=== PATIENT | female | born 1940 | race Caucasian/White ===

== ENCOUNTER 2018-01-31 09:54 | Emergency (ER) | payer OTHER ==
[2018-01-31 10:17] VITALS: BP 155/78
[2018-01-31] MEDS ORDERED: Ondansetron ODT TAB* 4 MG SL ONE (10:20)
[2018-01-31] MEDS ORDERED: Ibuprofen TAB* 600 MG PO ONE (10:21)
--- NOTE | 2018-01-31 10:48 | RAD ---
Indication: Right wrist injury 3 views of the wrist demonstrates fracture of the distal radius with overriding of the fracture fragments and distal displacement.. Degenerative changes of the intercarpal joints is noted. IMPRESSION: Fracture of the distal radius with overriding of the fracture fragments and dorsal displacement.
--- NOTE | 2018-01-31 12:04 | UC ---
Upper Extremity HPI - HPI Summary HPI Summary: Patient is a 77-year-old female presenting to the ED with a chief complaint of a right wrist pain and deformity after falling prior to arrival. Endorses pain to the dorsum of the wrist. There is a small amount of bleeding to the volar wrist. There is a small 0.2 cm puncture wound to the right volar wrist which is actively bleeding. She has never injured the right wrist before. Pain is 7 out of 10, constant and throbbing. Denies any numbness or tingling. Ice is applied on arrival. Denies any color temperature changes to the wrist. Pulses +2 intact bilaterally. - History of Current Complaint Chief Complaint: UCUpperExtremity Stated Complaint: WRIST INJURY Time Seen by Provider: 01/31/18 10:10 Hx Obtained From: Patient ?: No Onset/Duration: Sudden Onset Severity Initially: Moderate Severity Currently: Moderate Pain Intensity: 4 Pain Scale Used: 0-10 Numeric Location Of Pain: Is Discrete @ - dorsal wrist Aggravating Factor(s): Lifting, Flexion, Extension Alleviating Factor(s): Compression, Ice Associated Signs And Symptoms: Positive: Swelling, Other - Risk Factors Non-Orthopedic Risk Factor: Negative DVT Risk Factors: Negative Septic Arthritis Risk Factor: Negative Compartment Syndrome Risk Factors: Pain - Allergies/Home Medications Allergies/Adverse Reactions: Allergies Allergy/AdvReac Type Severity Reaction Status Date / Time acetaminophen Allergy Vomiting Verified 01/31/18 10:42 [From Darvocet-N] budesonide [From Symbicort] Allergy Unknown Verified 01/31/18 10:40 Reaction Details celecoxib [From Celebrex] Allergy Rash Verified 01/31/18 10:38 ciprofloxacin [From Cipro] Allergy See Comment Verified 01/31/18 10:38 codeine Allergy Vomiting Verified 01/31/18 10:39 formoterol [From Symbicort] Allergy Unknown Verified 01/31/18 10:40 Reaction Details latex Allergy Rash Verified 01/31/18 10:39 naproxen Allergy Rash Verified 01/31/18 10:39 nitrofurantoin Allergy Nausea And Verified 01/31/18 10:38 [From Macrodantin] Vomiting prochlorperazine Allergy See Comment Verified 01/31/18 10:43 propoxyphene Allergy Vomiting Verified 01/31/18 10:42 [From Darvocet-N] Sulfa (Sulfonamide Allergy Vomiting Verified 01/31/18 10:42 Antibiotics) tramadol Allergy Hallucinati Verified 01/31/18 10:40 ons bactrim Allergy Shortness Uncoded 10/30/16 09:47 of Breath ENVIRONMENTAL Allergy EYE Uncoded 10/30/16 09:47 IRRITATION, CONSTANT NASAL DRIP Home Medications: Home Medications Aspirin 81 mg PO DAILY 01/31/18 [History Confirmed 01/31/18] Aspirin 325 mg PO BID 01/31/18 [History Confirmed 01/31/18] Calcium Carbonate/Vitamin D3 [Calcium 600+D High Potenc] 1 tab PO DAILY [History Confirmed 01/31/18] Cholecalciferol (Vitamin D3) [Vitamin D3] 1,000 unit PO DAILY 01/31/18 [History Confirmed 01/31/18] Cinnamon Bark [Cinnamon] 500 mg PO DAILY 01/31/18 [History Confirmed 01/31/18] Cranberry Fruit Extract [Cranberry] 1 cap PO DAILY 01/31/18 [History Confirmed 01/31/18] Cyanocobalamin TAB* [Vitamin B12 TAB*] 1,000 mcg PO DAILY 01/31/18 [History Confirmed 01/31/18] Glucosamine HCl [Glucosamine] 1,500 mg PO DAILY 01/31/18 [History Confirmed ] L.acidoph,Paracasei, B.lactis [Probiotic] 1 each PO DAILY 01/31/18 [History Confirmed 01/31/18] Magnesium Oxide [Magnesium] 500 mg PO DAILY 01/31/18 [History Confirmed 01/31/18 ] Multivitamin [Multivitamins] 1 cap PO DAILY 01/31/18 [History Confirmed 01/31/18 ] [place]-3 Fatty Acids/Fish Oil [Fish Oil 1200 mg] 1 cap PO DAILY 01/31/18 [ History Confirmed 01/31/18] PMH/Surg Hx/FS Hx/Imm Hx Previously Healthy: Yes - Surgical History Surgical History: Yes Surgery Procedure, Year, and Place: gallbladder removed 1973 - Family History Known Family History: Positive: Cardiac Disease - Social History Occupation: Unemployed Lives: Alone Alcohol Use: Rare Substance Use Type: None Smoking Status (MU): Never Smoked Tobacco - Immunization History Most Recent Influenza Vaccination: 2016 Most Recent Tetanus Shot: unknown Review of Systems Constitutional: Negative Skin: Negative Respiratory: Negative Motor: Decreased ROM, Weakness Neurovascular: Decreased Sensation Musculoskeletal: Arthralgia Neurological: Negative Psychological: Negative Is Patient Immunocompromised?: No All Other Systems Reviewed And Are Negative: Yes Physical Exam Triage Information Reviewed: Yes Appearance: Well-Appearing, Well-Nourished Vital Signs: Initial Vital Signs Temp 97.9 F 01/31/18 10:07 Pulse 62 01/31/18 10:07 Resp 16 01/31/18 10:07 BP 155/78 01/31/18 10:07 Pulse Ox 97 01/31/18 10:07 Vital Signs Reviewed: Yes Eye Exam: Normal Eyes: Positive: Conjunctiva Clear Neck exam: Normal Neck: Positive: Supple, No Lymphadenopathy Respiratory Exam: Normal Respiratory: Positive: Chest non-tender, Lungs clear Cardiovascular Exam: Normal Cardiovascular: Positive: RRR Musculoskeletal: Positive: ROM Limited @ - dorsum of the R wrist Neurological Exam: Normal Neurological: Positive: Alert Psychological: Positive: Normal Response To Family, Age Appropriate Behavior Skin Exam: Normal Upper Extremity Course/Dx - Course Course Of Treatment: During the course of treatment, the patient's evaluated for right dorsal wrist pain. Deformity noted. X-ray obtained which shows fracture of the distal radius with overriding fragments and dorsal displacement. Discussed with patient hematoma block and reduction of the wrist prior to splint. She states she would rather see an orthopedist and would not like the attempt at reduction. I have called the on-call orthopedist who is currently in the OR. I have called the office and Dr. Logan agrees to see patient in her office at this time. This fracture is an open fracture as there is active bleeding. Bleeding is controlled during the course of treatment and occlusive form is applied with Kerlix gauze wrapped. Volar wrist splint applied. Patient tolerated well. Sling given. She is to follow-up with or so at 1 PM this afternoon for evaluation. She is given Keflex 4 days for open fracture. The bone fragments however are not near the scan and likely this is not bone fragments which caused the injury. She continues to have radial pulses , but fingertips with some numbness and tingling at thist violetta (prior to splint application.) She has, however, been applying ice since arrival. Denies pain in the elbow of fingertips. Unable to tell the severity of any veins or arteries underlying, but no ecchymosis or hematoma is seen. - Differential Dx/Diagnosis Differential Diagnosis/HQI/PQRI: Fracture (Open), Fracture (Closed) Provider Diagnoses: Right distal radius fracture Discharge - Discharge Plan Condition: Stable Disposition: HOME Prescriptions: Cephalexin CAP* [Keflex CAP*] 500 mg PO QID #16 cap MDD 4 Patient Education Materials: Wrist Fracture in Adults (ED) Referrals: Mirta Frausto MD [Primary Care Provider] - Elizabeth Logan MD [Medical Doctor] - Additional Instructions: Please follow up with Dr. Logan today at 1pm. Make sure you make them aware this is an "open fracture" since there is a small cut to the wrist.
== END 2018-01-31 11:40 | disposition home or self-care (01) ==
LOC: UCEAST 09:54
DX: S52.501B Unspecified fracture of the lower end of right radius, initial encounter for open fracture type I or II (principal); W19.XXXA Unspecified fall, initial encounter; Y92.9 Unspecified place or not applicable; Z88.6 Allergy status to analgesic agent; Z88.8 Allergy status to other drugs, medicaments and biological substances; Z88.2 Allergy status to sulfonamides; Z88.3 Allergy status to other anti-infective agents
CPT/HCPCS: 99213; A9270-GY; G0463

== ENCOUNTER 2018-02-01 09:19 | Day surgery (SDC) | payer OTHER ==
[~2018-02-01 09:19] MED LIST: Buffered Lidocaine 0.9% SYRIN* 5 ML/SYR SYRINGE INTRADERM ONE; Dexamethasone IV* 4 MG/ML 1 ML (4 MG) IV SLOW PU ONE; Famotidine IV* 10 MG/ML 2 ML (20 mg) IV ONE
--- NOTE | 2018-02-01 09:35 | HP ---
PREOPERATIVE HISTORY AND PHYSICAL: DATE OF ADMISSION/SURGERY: 02/01/18 ATTENDING SURGEON: Dr. Elizabeth Logan* (dictated by MENDEL Blank). PROCEDURE: Open reduction and internal fixation, right distal radius fracture. CHIEF COMPLAINT: Right wrist pain. HISTORY OF PRESENT ILLNESS: Shaista is a 77-year-old female, who has a 1-day history of right wrist pain which started when she was walking into work. She slipped on ice and fell landing on to an outstretched hand. She was seen at [facility] where x-rays were obtained, which did reveal fracture. She was splinted and sent right away for orthopedic evaluation. The patient was seen by Dr. Logan in the office, a closed reduction was attempted, but there was still a quite a bit of displacement. The patient has elected to proceed with surgery for open reduction internal fixation of right distal radius fracture. She denies any numbness or tingling. PAST MEDICAL HISTORY: 1. Aortic valve disorder. 2. Diabetes mellitus. 3. Hyperlipidemia. 4. Benign essential hypertension. PAST SURGICAL HISTORY: 1. Cholecystectomy in 1973. 2. Tonsillectomy in 1945. CURRENT MEDICATIONS: 1. Atorvastatin. 2. Metoprolol succinate. 3. Aspirin 325 mg. 4. Calcium. 5. Multivitamin. 6. Fish oil. 7. Glucosamine. 8. Potassium gluconate 595 mg. 9. Magnesium 500 mg. 10. Vitamin B12 1000 mcg. 11. Cranberry 250 mg. 12. Aspirin 81 mg. 13. Cinnamon 500 mg. 14. Probiotics. 15. Advil 200 mg. 16. PreserVision AREDS 2. ALLERGIES: To BACTRIM, COMPAZINE, DARVOCET, ULTRACET, CIPRO, CELEBREX, ALEVE, MACRODANTIN, CODEINE, SYMBICORT, and LATEX SENSITIVITY. FAMILY HISTORY: Heart disease, cancer. SOCIAL HISTORY: She is , she lives alone. She works as library administrative assistant coordinator. She denies tobacco use, rarely consumes alcohol, and denies recreational drug use. REVIEW OF SYSTEMS: General: Negative for fevers, chills, night sweats. No known anesthesia problems. HEENT: Negative for headaches, lightheadedness, or syncopal episodes. Integumentary: Negative for abrasions, lesions, or open wounds. Cardiothoracic: Positive for history of aortic stenosis, hypertension. Negative for chest pain, palpitations, or edema. Pulmonary: Negative for shortness of breath with exertion, chronic cough, COPD. GI: Negative or nausea , vomiting, diarrhea, constipation, or GERD. : Negative for nocturia, urinary frequency, urgency, history of UTI, or kidney problems. Musculoskeletal : Positive for current complaint. Negative for chronic or intermittent back pain. Neurological: Negative for history of seizures, stroke, or epilepsy. Negative for anxiety or depression. Endocrine: Positive for diabetes. Negative for thyroid issues. Hematological: Negative for easy bruising or bleeding. Negative for history of DVT. Infectious Disease: Negative for history of MRSA, hepatitic C, or HIV. PHYSICAL EXAMINATION GENERAL: Well-developed, well nourished, 77-year-old female, in mild distress at rest. She is awake, alert, and oriented x3. Appropriate mood and affect. VITAL SIGNS: Pulse is 57, blood pressure is 138/88, respirations 16, temperature 99.0. HEENT: Head is normocephalic, atraumatic. Pupils are equal, round, and reactive to light and accommodation. Throat is clear. NECK: Supple with no palpable lymph nodes. PULMONARY: Lungs clear to auscultation bilaterally. No wheezes, rales, or rhonchi. CARDIOVASCULAR: Regular rate and rhythm. S1, S2. No murmurs, rubs, or gallops. No edema. ABDOMEN: Positive bowel sounds throughout. Soft, nontender. NEUROLOGIC: Alert and oriented x3. Cranial nerves II through XII are grossly intact. Sensation is intact to light touch distally. MUSCULOSKELETAL: Exam of the right upper extremity, she does have a quite a bit of swelling and bruising down to the fingers and wrist. There is mild deformity of the wrist. She is tender at the distal radius. Sensation is intact to light touch distally, 2+ radial pulse. DIAGNOSTIC STUDIES: X-rays taken today showed a displaced intraarticular fracture of the right distal radius. IMPRESSION: Right distal radius fracture. PLAN: The patient is scheduled to undergo an open reduction internal fixation right distal radius fracture with Dr. Logan on 02/01/18. She will return to the office in 14 days postoperatively for followup and suture removal. A prescription for [place] was e-prescribed to the patient's pharmacy for postoperative pain management. MENDEL BLANK [id number]/[facility] #: [id number] [facility]
[2018-02-01] MEDS ORDERED: Famotidine IV* 10 MG/ML 2 ML (20 mg) ONE (09:46)
[2018-02-01] MEDS ORDERED: ceFAZolin 2 GM (*##) 2 GM/100 ML BAG USE CEFA2SOL IVPB ONE (09:46)
[2018-02-01] MEDS ORDERED: Dexamethasone IV* 4 MG/ML 1 ML (4 MG) ONE (09:46)
[2018-02-01] MEDS ORDERED: Buffered Lidocaine 0.9% SYRIN* 5 ML/SYR SYRINGE ONE (10:28)
[2018-02-01] MEDS ORDERED: ROPIVACAINE 5 MG/ML 30 ML BTL (0.5%) ONE (11:02)
[2018-02-01] MEDS ORDERED: Ondansetron INJ* 2 MG/ML VIAL ONE (11:04)
[2018-02-01] MEDS ORDERED: Bupivacaine 0.25% SDV* 30 ML ONE (11:04)
[2018-02-01] MEDS ORDERED: Propofol* 10 MG/ML 20 ML BTL IV PUSH ONE (11:04)
[2018-02-01] MEDS ORDERED: Ketorolac INJ* 30 MG/ML 1 ML VIAL ONE (11:04)
[2018-02-01] MEDS ORDERED: fentaNYL* 50 MCG/ML 2 ML VIAL (100 MCG VIAL) ONE ×2 (11:04→11:42)
[2018-02-01] MEDS ORDERED: Midazolam* 1 MG/ML 5 ML VIAL (5 MG) ONE (11:04)
[2018-02-01] MEDS ORDERED: Lidocaine 1% INJ* 10 MG/ML 30 ML SDV ONE (11:34)
[2018-02-01] MEDS ORDERED: Naloxone* 0.4 MG/ML 1 ML VIAL IV PRN (12:03)
[2018-02-01 13:04] VITALS: BP 125/93
--- NOTE | 2018-02-01 15:23 | RAD ---
INDICATION: Right wrist ORIF COMPARISON: January 31, 2018 FINDINGS: 71 seconds of fluoroscopy were provided for the orthopedics department. Fluoroscopic spot imaging of the right wrist were obtained for operative control and show open reduction and internal fixation of the distal radial fracture. The fracture fragments are in anatomic position . CPT II Codes: 6045F (fluoro time doc)
--- NOTE | 2018-02-02 22:30 | OP ---
DATE OF OPERATION: 02/01/18 - [facility] DATE OF : 40 SURGEON: Elizabeth Logan MD ANESTHESIA: Block. PRE-OP DIAGNOSIS: Right distal radius fracture, intraarticular and displaced. POST-OP DIAGNOSIS: Right distal radius fracture, intraarticular and displaced. OPERATIVE PROCEDURE: Open reduction internal fixation of the right distal radius. ESTIMATED BLOOD LOSS: Zero. TOURNIQUET TIME: About 35 minutes. INDICATION FOR PROCEDURE: Shaista Velez is a 77-year-old women, who slipped and fell on the ice at work yesterday. She suffered a completely displaced fracture of her distal radius, attempted closed reduction was not adequate. She presents for open reduction internal fixation of the distal radius. DESCRIPTION OF PROCEDURE: The patient was brought to the operating room, was given a block anesthetic, and a tourniquet was placed around her right upper arm. Skin of her right upper extremity was prepped and draped in the usual sterile fashion. The upper extremity was exsanguinated and the tourniquet elevated to 250 mmHg. A longitudinal incision was made over the FCR tendon and we dissected sharply through the tendon sheath both superficially and deep. The FPL muscle was then retracted ulnarly and the pronator quadratus was incised and subperiosteally dissected off of the distal radius. The fracture fragments were then reduced and a plate from the 2.4 variable angle Synthes distal radius set was secured with 4 distal and 3 proximal screws. The position of the hardware and fracture fragments were checked on the C-arm in the AP and lateral views and found to be satisfactory. The wound was irrigated. The pronator quadratus was repaired over the plate. The FCR tendon sheath was repaired with 2-0 Vicryl suture and the skin edges were reapproximated with 4-0 nylon suture. The wound was dressed with Xeroform, 4x4 , Webril, and a volar splint. The patient tolerated the procedure well and was brought to the recovery room in good condition. [id number]/[facility] #: [id number] [facility]
== END 2018-02-01 13:04 | disposition home or self-care (01) ==
LOC: OREAST 09:19
PROVIDERS: ATTEND Orthopaedic Surgery
DX: S52.571A Other intraarticular fracture of lower end of right radius, initial encounter for closed fracture (principal); W00.2XXA Other fall from one level to another due to ice and snow, initial encounter; Y93.01 Activity, walking, marching and hiking; Y92.89 Other specified places as the place of occurrence of the external cause; I35.8 Other nonrheumatic aortic valve disorders; E11.9 Type 2 diabetes mellitus without complications; E78.5 Hyperlipidemia, unspecified; I10 Essential (primary) hypertension
CPT/HCPCS: 76001; C1713; C1776; J1100; J1885; J2250; J2405; J2704; J2795; J3010

== ENCOUNTER 2019-03-27 16:30 | Emergency (ER) | payer OTHER ==
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
[2019-03-27] MEDS ORDERED: Tetan/Diph/Pertus SYR(Tdap)* 0.5 ML SYR(BOOSTRIX) use SYR IM ONE (17:07)
--- NOTE | 2019-03-27 17:19 | UC ---
Minor Trauma HPI - HPI Summary HPI Summary: 78 yo female tripped over a students foot and handed face first on a carpeted floor No CHRISTIAN + nasal pain and swelling but no ecchymosis No neck pain no jaw pain + upper lip laceration no loose teeth C/O right hand laceration but denies pain c/o left shoulder pain no CP or SOB - History of Current Complaint Chief Complaint: UCHeadInjury Stated Complaint: facial injury Time Seen by Provider: 03/27/19 16:37 Hx Obtained From: Patient Hx Last Menstrual Period: post Onset/Duration: Sudden Onset Onset Of Pain: Immediate Severity Initially: Moderate Severity Currently: Mild Pain Intensity: 2 Pain Scale Used: 0-10 Numeric Mechanism Of Injury: Fall From A Standing Position Aggravating Factor(s): Nothing Associated Signs And Symptoms: Positive: Ecchymosis, Swelling Body - Head: 1 - diffuse nasal swelling/bilateral periorbital ecchymosis 2 - lac/dorsal hand edema 3 - pain - Allergies/Home Medications Allergies/Adverse Reactions: Allergies Allergy/AdvReac Type Severity Reaction Status Date / Time acetaminophen Allergy Vomiting Verified 03/27/19 16:48 [From Darvocet-N] budesonide [From Symbicort] Allergy Unknown Verified 03/27/19 16:48 Reaction Details celecoxib [From Celebrex] Allergy Rash Verified 03/27/19 16:48 ciprofloxacin [From Cipro] Allergy See Comment Verified 03/27/19 16:48 codeine Allergy Vomiting Verified 03/27/19 16:48 formoterol [From Symbicort] Allergy See Comment Verified 03/27/19 16:48 latex Allergy Rash Verified 03/27/19 16:48 naproxen Allergy Rash Verified 03/27/19 16:48 nitrofurantoin Allergy Nausea And Verified 03/27/19 16:48 [From Macrodantin] Vomiting prochlorperazine Allergy See Comment Verified 03/27/19 16:48 propoxyphene Allergy Vomiting Verified 03/27/19 16:48 [From Darvocet-N] Sulfa (Sulfonamide Allergy Vomiting Verified 03/27/19 16:48 Antibiotics) tramadol Allergy Hallucinati Verified 03/27/19 16:48 ons bactrim Allergy Unknown Uncoded 03/27/19 16:48 Reaction Details ENVIRONMENTAL Allergy EYE Uncoded 03/27/19 16:48 IRRITATION, CONSTANT NASAL DRIP PMH/Surg Hx/FS Hx/Imm Hx Previously Healthy: Yes Endocrine History: Dyslipidemia Cardiovascular History: Hypertension - Surgical History Surgical History: Yes Surgery Procedure, Year, and Place: gallbladder removed 1973 - Family History Known Family History: Positive: Cardiac Disease - Social History Alcohol Use: Rare Substance Use Type: None Smoking Status (MU): Never Smoked Tobacco - Immunization History Most Recent Influenza Vaccination: 2016 Most Recent Tetanus Shot: unknown Review of Systems All Other Systems Reviewed And Are Negative: Yes Constitutional: Positive: Negative Skin: Positive: Bruising Eyes: Positive: Negative ENT: Positive: Negative Respiratory: Positive: Negative Cardiovascular: Positive: Negative Gastrointestinal: Positive: Negative Genitourinary: Positive: Negative Motor: Positive: Decreased ROM - both shoulders (chronic complaint) Musculoskeletal: Positive: Arthralgia - left shoulder Neurological: Positive: Negative Psychological: Positive: Negative Physical Exam Triage Information Reviewed: Yes Appearance: Well-Appearing, No Pain Distress, Well-Nourished Vital Signs: Initial Vital Signs Temp 99.1 F 03/27/19 16:36 Pulse 95 03/27/19 16:36 Resp 17 03/27/19 16:36 BP 180/100 03/27/19 16:36 Pulse Ox 97 03/27/19 16:36 Vital Signs Reviewed: Yes Eyes: Positive: Conjunctiva Clear, Other: - EOMI/PERRL, no orbital rim step offs ENT: Positive: Hearing grossly normal, Uvula midline. Negative: Trismus, Muffled voice, Hoarse voice, Dental tenderness, Sinus tenderness Dental Exam: Normal Neck: Positive: Supple, Nontender, No Lymphadenopathy Respiratory: Positive: Lungs clear, Normal breath sounds, No respiratory distress, No accessory muscle use Cardiovascular: Positive: RRR Abdomen Description: Positive: Nontender, No Organomegaly Musculoskeletal: Positive: Other: - see image Neurological: Positive: Alert Psychological Exam: Normal Skin Exam: Other - see image Procedures - Laceration/Wound Repair 1 Location: Other - RIght hand Description: Linear - curvilinear Anesthesia: Local, 1.0% Length, Depth and Shape: 2.3 cm long 2 mm deep 3 mm wide overlying 2nd R MCP joint Betadine Prep?: Yes Irrigated w/ Saline (ccs): 200 Laceration/Wound Explored: clean Suture Type: Nylon - 5-0 Number of Sutures: 7 Layer Closure?: No Sterile Dressing Applied?: Yes 2 Location: Other - lower lip Description: Stellate Anesthesia: Local, 2.0%, Lido Length, Depth and Shape: 1.8 cm. irreg/3-4 mm wide Betadine Prep?: Yes Irrigated w/ Saline (ccs): 100 Closure: Single Layer Suture Type: Vicryl - 5-0 Number of Sutures: 4 Layer Closure?: No Sterile Dressing Applied?: No Diagnostics - Radiology No standard instances Radiology Interpretation Completed By: Radiologist Summary of Radiographic Findings: right hand- no fx. left shoulder -no fracture. nose- no fx Minor Trauma Course/Dx - Differential Dx/Diagnosis Provider Diagnosis: Laceration of right hand, Laceration of lower lip, Injury of left shoulder, Nasal contusion Discharge - Sign-Out/Discharge Documenting (check all that apply): Patient Departure All imaging exams completed and their final reports reviewed: Yes - Discharge Plan Condition: Improved Disposition: HOME Prescriptions: Penicillin VK 500 MG TAB(NF) [Penicillin VK 500 mg Tab] 500 mg PO TID #15 tab Referrals: Mirta Frausto MD [Primary Care Provider] - 1 Day Additional Instructions: NOTE: We saw no nasal fracture- you have significant swelling/bruising of your nose. I saw no SEPTAL HEMATOMA. This can occasionally occur after significant nasal trauma. You are so swollen I think you should get rechecked tomorrow Rest ice you can use saline nasal spray two sprays each nostril twice daily I suggest you eat a SOFT, NO CHEW diet for 2-3 days gently clean lower lip with water after eating clean right hand laceration twice daily thin film of antibiotic oint dressing for a few days as it starts to heal you may leave it open to air periodically I suggest suture removal in about a week - Billing Disposition and Condition Condition: IMPROVED Disposition: Home
[2019-03-27] MEDS ORDERED: Lidocaine 1%* 5 ML VIAL INJ ONE (18:31)
[2019-03-27 18:37] VITALS: BP 178/82
[2019-03-27] MEDS ORDERED: Penicillin VK TAB* 250 MG PO ONE (19:24)
== END 2019-03-27 19:55 | disposition home or self-care (01) ==
LOC: UCEAST 16:30
DX: S01.511A Laceration without foreign body of lip, initial encounter (principal); S61.411A Laceration without foreign body of right hand, initial encounter; S49.92XA Unspecified injury of left shoulder and upper arm, initial encounter; S00.33XA Contusion of nose, initial encounter; W01.0XXA Fall on same level from slipping, tripping and stumbling without subsequent striking against object, initial encounter; Y92.9 Unspecified place or not applicable; Z23 Encounter for immunization; E78.5 Hyperlipidemia, unspecified; I10 Essential (primary) hypertension; J30.2 Other seasonal allergic rhinitis; Z88.6 Allergy status to analgesic agent; Z88.1 Allergy status to other antibiotic agents; Z91.040 Latex allergy status; Z88.5 Allergy status to narcotic agent; Z88.2 Allergy status to sulfonamides; Z88.8 Allergy status to other drugs, medicaments and biological substances
CPT/HCPCS: 12001; 12011; 70160; 90471; 90715; 99212; A9270-GY; G0463

== ENCOUNTER 2019-04-03 14:06 | Emergency (ER) | payer OTHER ==
--- OUTSIDE RECORDS SUMMARY | 2019-04-03 16:11 | XMS REPORT | Continuity of Care Document ---
:1940 External Reference #:[id number] Author Name Mirta Frausto M.D. Address [address], [place] [address] Care Team Providers Name Role Phone Mirta Frausto MD Primary Care Physician Unavailable Payers Date Identification Numbers Payment Provider Subscriber Effective: 2012 Policy Number: [id number] [employer] Erlinda Urbina PayID: [id number] [address] [place] [address] Onset: 2018 Policy Number: [id number] Peterson Fabi Erlinda Urbina Group Number: [id number] [phone] [address] PayID: ALIVIA Perez [id number] Expires: 2007 Policy Number: [id number] [employer] Ada K [place] PayID: [id number] [address] [place] [address] Effective: 2007 Policy Number: [id number] [employer] Ada K Agustin Expires: 2012 Group Number: [id number] [address] PayID: [id number] [place] [address] Advance Directives Type Date Description Status Comment Other Directive 03/02/2017 health care proxy Current and Verified Problems Active Problems Provider Date Diabetes mellitus Mirta Frausto M.D. Onset: 04/21/2014 Benign essential hypertension Iggy Giang M.D.,FACP Onset: 03/26/2009 Hyperlipidemia Iggy Giang M.D.,FACP Onset: 03/26/2009 Strain of rotator cuff capsule Iggy Giang M.D.,FACP Onset: 03/26/2009 Edema Bipin Hines M.D. Onset: 08/04/2014 Aortic valve disorder Bipin Hines M.D. Onset: 08/04/2014 Electrocardiogram abnormal Bipin Hines M.D. Onset: 08/04/2014 Essential hypertension Bipin Hines M.D. Onset: 10/04/2015 Family History Date Family Member(s) Observation Comments Father CAD In His 30'S CABG 70's., of lung cancer 73 Father due to Cancer, Lung () Father Hyperlipidemia Father Lung CA Father double bypass Mother due to Lymphoma () Onset: (age 63 Mother Malignant Lymphoma Document: 02/11/08 - Years) Prog Note - Angela 63 Onset: (2013) Siblings 2 1 brother Crohns, 67; 1 sister 65 First Brother Hypercholesterolemia on Lipitor First Brother Crohn's Disease First Sister Diabetes First Sister Osteoporosis First Sister Depression Social History Type Date Description Comments Sex Unknown Education Higest level completed, Bachelor's Degree Marital Status 1983 Lives With Alone 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 Allergies, Adverse Reactions, Alerts Active Allergies Reaction Severity Comments Date Bactrim dyspnea 12/09/2007 Compazine torticollis 02/11/2008 Darvocet vomiting, spaced out 02/11/2008 Ultracet vomiting, spaced out 02/11/2008 Cipro tendonitis? 03/20/2013 Celebrex rash 03/20/2013 Aleve rash 03/20/2013 Macrodantin Nausea and Vomiting Moderate 04/18/2013 Codeine vomiting 01/19/2014 Symbicort (US) 04/21/2014 Latex sensitivity 10/04/2015 Medications Active Medications SIG Qnty Indications Ordering Date Provider Fluticasone 2 intranasal puffs 16gm R09.81 Mirta 10/14/2018 Propionate once daily Tariq Frausto 50mcg/Act Suspension Bactroban apply to effected 15gm L03.116 Yuri Andrew, 06/07/2018 2% Cream area tid Nystatin-Triamcinolo apply to effected 30gm Z01.419 Yuri Andrew, 2017 ne area twice a day 135761-6.1Unit/GM-% Cream Atorvastatin Calcium 1 tablet by mouth 12tabs E78.5 Bipin Gunn 02/14/2016 three times weekly Tariq Hines 10mg Tablets Metoprolol Succinate 1 by mouth every 30tabs I10 Mirta 10/29/2015 ER day Tariq Frausto 25mg Tablets ER 24HR Aspirin Ec 1 by mouth 1 -2 60tabs Bipin Gunn 10/04/2015 325mg times daily prn Tariq Hines Tablets DR pain Calcium 600+D 1 to 2 po qd Bipin Gunn 08/04/2014 Tariq Hines [id number] Tablets Preservision Areds 2 1 poQD Unknown Areds 2 Capsules Advil as needed Unknown 200mg Tablets Probiotic 1 by mouth qd prn 14caps Unknown Capsules Cinnamon 1-2 by mouth every Unknown 500mg day Capsules Aspirin 1 po qd (not Unknown 81mg Chewtabs taking regularly) Cranberry bid Unknown 250mg Capsules Vitamin B-12 1 by mouth twice Unknown 1000mcg daily Tablets Sub Potassium Gluconate 1 tab po daily prn Unknown 595mg Tablets Glucosamine 1500 2 capsule by mouth Unknown Complex daily 1500Com Capsules Fish Oil Burp-Less 1 po qd Unknown 1200mg Capsules Multi-Vitamin 1 po qd 100tabs Unknown Tablets History Medications Letha 1 by mouth 20tabs Elizabeth 02/01/2018 - 5-325mg Tablets every 6 hours Tariq Logan 11/19/2018 as needed Benzonatate take one or two 30caps J06.9 Sebastien Mattson NP 01/15/2017 - 100mg Capsules capsules every 01/23/2017 8 hours as needed for cough. Doxycycline Hyclate one tablet 20caps J06.9 Sebastien Mattson NP 01/15/2017 - 100mg twice daily for 01/23/2017 Capsules 10 days. Mucinex DM 1 by mouth 30tabs Sebastien Mattson NP 01/15/2017 - 30-600mg Tablets twice a day pn 06/04/2017 ER 12HR Lisinopril 1 by mouth 30tabs I10 Mirta 07/29/2015 - 2.5mg Tablets every day Tariq Frausto 10/29/2015 Cartia XT 1 by mouth 30caps Bipin Gunn 12/15/2014 - 120mg Caps ER every day Tariq Hines 02/04/2015 24HR Cephalexin 1 by mouth four 28tabs 599.0 [facility] 04/02/2014 - 250mg Tablets times a day x 7 Tariq Frausto 04/15/2014 days Mucinex 1 tab twice a 60tabs [facility] 02/20/2014 - 600mg Tablets ER day by mouth as Tariq Frausto 04/21/2014 12HR needed Flovent HFA 2 puffs twice 1units 493.00 Mirta 02/20/2014 - 44mcg/Act daily for 1-2 Traiq Frausto 02/20/2014 Aerosol months Symbicort inhale two 10.2units 493.00 [facility] 02/20/2014 - 80-4.5mcg/Act puffs by mouth Tariq Frausto 04/02/2014 Aerosol twice a day Benzonatate take 1 capsule 30caps 465.9 Mirta 01/19/2014 - 200mg Capsules by mouth three Tariq Frausto 02/20/2014 times a day if needed Cephalexin 1 tablet 4 40caps Mirta 01/08/2014 - 500mg Capsules times daily for Tariq Frausto 02/20/2014 10 days Flovent HFA 2 puffs twice 1units Alyssa Quezada, 01/07/2014 - 44mcg/Act daily for 10 M.D., FACP 01/19/2014 Aerosol days Benzonatate take 1 capsule 30caps 465.9 Mirta 01/05/2014 - 200mg Capsules by mouth three Tariq Frausto 01/19/2014 times a day if needed Guaifenesin ac 2 tsp po q 4 h 4oz 465.9 Mirta 01/05/2014 - 100-10mg/5ML prn cough Tariq Frausto 01/19/2014 Syrup Aspirin [facility] 03/20/2013 - Tariq Frausto 04/18/2013 Chlorpheniramine prn [facility] 03/20/2013 - Maleate Tariq Frausto 01/15/2017 4mg Tablets Triamterene/Hydrochloro take 1 capsule 30capjacquie Dave 04/06/2008 - thiazide by mouth every Tariq Giang,[facility] 03/26/2009 37.5-25 Caps morning Bactrim DS si bid x 3 6tabs Iggy Dave 12/06/2007 - 800-160 Tablets days Tariq Giang,[facility] 12/09/2007 Dyazide 1 po qd 30caps Iggy Dave - 37.5-25 Capsules Tariq Giang,[facility] 03/20/2013 Calcium 600 1 po bid 60tabs Unknown - 600mg Tablets 08/04/2014 Magnesium 1 po qd Unknown - 500mg Capsules 03/28/2019 Vitamin D-3 1 by mouth Unknown - 1000Unit every day 07/29/2015 Capsules Vitamin D-3 1 by mouth Unknown - 1000Unit every day 01/15/2017 Capsules Vitamin B-6 Unknown - 25mg Tablets 02/12/2017 Medications Administered in Office Medication SIG Qnty Indications Ordering Provider Date Depomedrol 40MG Elizabeth Logan M.D. 04/24/2018 Injection Immunizations CPT Code Status Date Vaccine Lot # [id number] Given 08/01/2018 Fluzone High Dose 55289 Given 01/21/2015 Pneumococcal Conjugate Vaccine 13 Valent For [id number] Intramuscular Use 84149 Given 04/18/2013 Pneumonia Vaccine [id number] Vital Signs Date Vital Result Comment 03/28/2019 5:07pm Height 61.5 inches 5'1.50" Weight 166.00 lb Heart Rate 83 /min BP Systolic Sitting 144 mmHg BP Diastolic Sitting 79 mmHg O2 % BldC Oximetry 96 % BMI (Body Mass Index) 30.9 kg/m2 10/14/2018 2:37pm Height 61.5 inches 5'1.50" Weight 168.00 lb Heart Rate 60 /min BP Systolic Sitting 158 mmHg BP Diastolic Sitting 82 mmHg O2 % BldC Oximetry 96 % BMI (Body Mass Index) 31.2 kg/m2 Waist Circumference 35.5 09/09/2018 10:26am Height 61.5 inches 5'1.50" Weight 166.00 lb with shoes Heart Rate 68 /min BP Systolic 140 mmHg lue reg cuff BP Diastolic 76 mmHg lue reg cuff BMI (Body Mass Index) 30.9 kg/m2 Ejection Fraction 60-65% Echo. 08/19/2018 07/18/2018 3:37pm Height 61.5 inches 5'1.50" Weight 165.00 lb Heart Rate 60 /min BP Systolic Sitting 139 mmHg BP Diastolic Sitting 76 mmHg O2 % BldC Oximetry 96 % BMI (Body Mass Index) 30.7 kg/m2 07/10/2018 10:03am Height 61.5 inches 5'1.50" Weight 165.00 lb w/o shoes Heart Rate 64 /min BP Systolic Sitting 150 mmHg Lue Large Cuff BP Diastolic Sitting 82 mmHg Lue Large Cuff BMI (Body Mass Index) 30.7 kg/m2 Ejection Fraction 55-50% ECHO 03/19/17 06/07/2018 10:06am Height 61.5 inches 5'1.50" Weight 163.00 lb Heart Rate 67 /min BP Systolic 130 mmHg BP Diastolic 78 mmHg O2 % BldC Oximetry 97 % BMI (Body Mass Index) 30.3 kg/m2 Last Menstrual Period [id number] 05/27/2018 4:09pm Height 61.5 inches 5'1.50" Weight 164.00 lb Heart Rate 67 /min BP Systolic 120 mmHg home reading BP Diastolic 68 mmHg home reading BP Systolic Sitting 158 mmHg BP Diastolic Sitting 85 mmHg O2 % BldC Oximetry 98 % BMI (Body Mass Index) 30.5 kg/m2 04/24/2018 3:51pm Height 61.5 inches 5'1.50" Weight 175.00 lb Heart Rate 64 /min Respiratory Rate 20 /min Body Temperature 97.5 F Pain Level 0 BMI (Body Mass Index) 32.5 kg/m2 03/28/2018 3:09pm Height 61.5 inches 5'1.50" Heart Rate 70 /min BP Systolic 118 mmHg BP Diastolic 70 mmHg Respiratory Rate 16 /min Body Temperature 98.1 F Pain Level 2 03/06/2018 3:31pm Height 61.5 inches 5'1.50" Heart Rate 81 /min BP Systolic 130 mmHg BP Diastolic 86 mmHg Respiratory Rate 16 /min Body Temperature 98.1 F Pain Level 2 02/13/2018 2:26pm Height 61.5 inches 5'1.50" Weight 163.00 lb Heart Rate 76 /min Respiratory Rate 15 /min Body Temperature 98.1 F Pain Level 2 BMI (Body Mass Index) 30.3 kg/m2 02/07/2018 3:40pm Height 61.5 inches 5'1.50" Weight 163.00 lb Heart Rate 80 /min Respiratory Rate 14 /min Body Temperature 98.4 F Pain Level 2 BMI (Body Mass Index) 30.3 kg/m2 01/31/2018 1:17pm Height 61.5 inches 5'1.50" Heart Rate 57 /min BP Systolic 138 mmHg BP Diastolic 88 mmHg Respiratory Rate 16 /min Body Temperature 99.0 F Pain Level 4 12/25/2017 3:47pm Height 61.5 inches 5'1.50" Weight 163.38 lb Heart Rate 72 /min BP Systolic Sitting 162 mmHg LA, reg cuff BP Diastolic Sitting 88 mmHg LA, reg cuff BP Systolic Standing 158 mmHg la arm sitting repeat BP Diastolic Standing 89 mmHg la arm sitting repeat BMI (Body Mass Index) 30.4 kg/m2 Ejection Fraction 55%-60% echo 03/19/17 12/24/2017 2:24pm Height 61.50 inches 5'1.50" Weight 163.50 lb Heart Rate 64 /min BP Systolic 126 mmHg BP Diastolic 80 mmHg O2 % BldC Oximetry 98 % BMI (Body Mass Index) 30.4 kg/m2 09/03/2017 3:14pm Height 61.50 inches 5'1.50" Weight 162.12 lb Heart Rate 81 /min BP Systolic 120 mmHg BP Diastolic 80 mmHg Body Temperature 98.3 F O2 % BldC Oximetry 98 % BMI (Body Mass Index) 30.1 kg/m2 06/04/2017 2:46pm Weight 160.75 lb Heart Rate 58 /min BP Systolic 128 mmHg BP Diastolic 78 mmHg Body Temperature 97.0 F O2 % BldC Oximetry 98 % 02/13/2017 3:06pm Height 61.5 inches 5'1.50" Weight 159.50 lb with shoes Heart Rate 70 /min BP Systolic Sitting 146 mmHg LA lrg cuff BP Diastolic Sitting 78 mmHg LA lrg cuff BMI (Body Mass Index) 29.6 kg/m2 Ejection Fraction 60% - 65% echo 10/27/15 01/15/2017 12:28pm Heart Rate 71 /min BP Systolic Sitting 138 mmHg BP Diastolic Sitting 86 mmHg Respiratory Rate 18 /min Body Temperature 98.7 F O2 % BldC Oximetry 95 % 01/15/2017 12:23pm Weight 159.00 lb 12/01/2016 4:12pm Weight 159.00 lb Heart Rate 74 /min BP Systolic Sitting 118 mmHg BP Diastolic Sitting 74 mmHg O2 % BldC Oximetry 96 % 08/28/2016 2:45pm Height 61.5 inches 5'1.50" Weight 161.00 lb Heart Rate 104 /min BP Systolic Sitting 148 mmHg BP Diastolic Sitting 86 mmHg O2 % BldC Oximetry 96 % BMI (Body Mass Index) 29.9 kg/m2 06/20/2016 3:11pm Height 61.5 inches 5'1.50" Weight 162.75 lb with shoes Heart Rate 60 /min BP Systolic 153 mmHg LA home cuff BP Diastolic 89 mmHg LA home cuff BP Systolic Sitting 166 mmHg LA lrg cuff BP Diastolic Sitting 88 mmHg LA lrg cuff BP Systolic Standing 126 mmHg la repeat sit/ BP Diastolic Standing 81 mmHg la repeat sit/ BMI (Body Mass Index) 30.3 kg/m2 Ejection Fraction 60%-65% echo 08/27/15 02/14/2016 10:03am Height 61.5 inches 5'1.50" Weight 159.00 lb Heart Rate 65 /min BP Systolic Sitting 142 mmHg BP Diastolic Sitting 80 mmHg Body Temperature 97.9 F BMI (Body Mass Index) 29.6 kg/m2 11/30/2015 10:00am Heart Rate 64 /min BP Systolic 132 mmHg L arm BP Diastolic 64 mmHg L arm BP Systolic Sitting 127 mmHg Pt BP machine L arm BP Diastolic Sitting 75 mmHg Pt BP machine L arm BP Systolic Standing 120 mmHg R arm BP Diastolic Standing 64 mmHg R arm BP Systolic Lying Down 134 mmHg Pt's Bp Machine R arm BP Diastolic Lying Down 75 mmHg Pt's Bp Machine R arm 10/29/2015 11:43am Weight 157.50 lb Heart Rate 71 /min BP Systolic Sitting 143 mmHg BP Diastolic Sitting 80 mmHg Body Temperature 98.4 F O2 % BldC Oximetry 98 % 10/04/2015 3:26pm Height 61.5 inches 5'1.50" Weight 159.00 lb Heart Rate 74 /min BP Systolic Sitting 144 mmHg LA, reg BP Diastolic Sitting 74 mmHg LA, reg BMI (Body Mass Index) 29.6 kg/m2 Ejection Fraction 55% 12/15/14 stress ECHO-rest 07/29/2015 3:48pm Height 61.5 inches 5'1.50" Weight 162.00 lb Heart Rate 65 /min BP Systolic Sitting 164 mmHg recheck 164/98 BP Diastolic Sitting 82 mmHg recheck 164/98 Body Temperature 98.0 F BMI (Body Mass Index) 30.1 kg/m2 02/04/2015 11:40am Height 63 inches 5'3" Weight 159.25 lb with shoes Heart Rate 80 /min BP Systolic 143 mmHg home unit BP Diastolic 93 mmHg home unit BP Systolic Sitting 154 mmHg LA reg BP Diastolic Sitting 90 mmHg LA reg BMI (Body Mass Index) 28.2 kg/m2 01/21/2015 4:07pm Weight 158.00 lb Heart Rate 77 /min BP Systolic Sitting 146 mmHg BP Diastolic Sitting 76 mmHg Body Temperature 98.2 F 08/04/2014 8:55am Height 62 inches 5'2" Weight 167.75 lb Heart Rate 66 /min reg BP Systolic 142 mmHg LA reg BP Diastolic 90 mmHg LA reg BMI (Body Mass Index) 30.7 kg/m2 07/23/2014 2:48pm Weight 163.00 lb Heart Rate 72 /min BP Systolic Sitting 132 mmHg BP Diastolic Sitting 82 mmHg Body Temperature 98.2 F 04/21/2014 3:04pm Height 62 inches 5'2" Weight 174.25 lb Heart Rate 88 /min BP Systolic Sitting 162 mmHg BP Diastolic Sitting 88 mmHg Body Temperature 98.2 F BMI (Body Mass Index) 31.9 kg/m2 04/15/2014 9:59am Weight 173.00 lb Heart Rate 60 /min BP Systolic Sitting 152 mmHg BP Diastolic Sitting 78 mmHg 04/02/2014 4:14pm Height 62 inches 5'2" Weight 170.00 lb Heart Rate 77 /min BP Systolic Sitting 142 mmHg BP Diastolic Sitting 98 mmHg Body Temperature 99.0 F O2 % BldC Oximetry 98 % BMI (Body Mass Index) 31.1 kg/m2 02/20/2014 12:01pm Weight 170.75 lb Heart Rate 77 /min BP Systolic 138 mmHg BP Diastolic 92 mmHg Respiratory Rate 16 /min Body Temperature 97.8 F O2 % BldC Oximetry 96 % Peak Flow Meter 90 90, 60, 60 01/19/2014 4:33pm Weight 172.00 lb Heart Rate 78 /min BP Systolic Sitting 138 mmHg BP Diastolic Sitting 82 mmHg Respiratory Rate 15 /min Body Temperature 98.7 F 01/05/2014 3:43pm Weight 170.25 lb Heart Rate 80 /min BP Systolic 148 mmHg BP Diastolic 86 mmHg Respiratory Rate 20 /min Body Temperature 98.3 F 07/29/2013 2:55pm Weight 170.50 lb Heart Rate 72 /min BP Systolic Sitting 140 mmHg BP Diastolic Sitting 80 mmHg 04/18/2013 11:23am Height 62 inches 5'2" Weight 175.50 lb Heart Rate 76 /min BP Systolic Sitting 150 mmHg BP Diastolic Sitting 80 mmHg BMI (Body Mass Index) 32.1 kg/m2 03/20/2013 10:36am Height 62 inches 5'2" Weight 175.00 lb Heart Rate 80 /min BP Systolic Sitting 138 mmHg BP Diastolic Sitting 88 mmHg BMI (Body Mass Index) 32.0 kg/m2 03/26/2009 9:31am Height 63 inches 5'3" Weight 176.00 lb Heart Rate 80 /min BP Systolic Sitting 122 mmHg BP Diastolic Sitting 76 mmHg BMI (Body Mass Index) 31.2 kg/m2 02/11/2008 11:34am Height 63 inches 5'3" Weight 178.00 lb Heart Rate 78 /min BP Systolic Sitting 146 mmHg BP Diastolic Sitting 82 mmHg BMI (Body Mass Index) 31.5 kg/m2 Results Test Date Facility Test Result H/L Range Note Lipid Panel - 11/22/2018 [facility] Creatine 182 U/L N 10-[address] Kinase(CK) [place] [address] [phone] Comp Metabolic 11/22/2018 [facility] Sodium 139 mmol/L N 135- [address] [place] [address] [phone] Potassium 4.2 mmol/L N 3.5-5.0 Chloride 104 mmol/L N 101-111 Co2 Carbon Dioxide 29 mmol/L N 22-32 Anion Gap 6 mmol/L N 2-11 Glucose 131 mg/dL High 70-100 Blood Urea Nitrogen 25 mg/dL High 6-24 Creatinine 0.92 mg/dL N 0.51-0.95 BUN/Creatinine Ratio 27.2 High 8-20 Calcium 9.1 mg/dL N 8.6-10.3 Total Protein 6.5 g/dL N 6.4-8.9 Albumin 3.8 g/dL N 3.2-5.2 Globulin 2.7 g/dL N 2-4 Albumin/Globulin Ratio 1.4 N 1-3 Total Bilirubin 0.60 mg/dL N 0.2-1.0 Alkaline Phosphatase 91 U/L N 34-104 Alt 20 U/L N 7-52 Ast 24 U/L N 13-39 Egfr Non- 59.0 >60 Egfr 71.4 >60 2 Lipid Profile 11/22/2018 [facility] Triglycerides 139 mg/dL 3 (Trig/Chol/HDL) [address] [place] [address] [phone] Cholesterol 155 mg/dL 4 HDL Cholesterol 67.0 mg/dL 5 LDL Cholesterol 60 mg/dL 6 Laboratory test 10/14/2018 [facility] Hemoglobin A1c 6.6 5-7 finding Lipid Panel - [facility] 06/26/2018 [facility] Creatine 251 U/L High 10-[address] Kinase(CK) [place] [address] [phone] Comp Metabolic 06/26/2018 [facility] Sodium 139 mmol/L N 135- [address] [place] [address] [phone] Potassium 4.1 mmol/L N 3.5-5.0 Chloride 104 mmol/L N 101-111 Co2 Carbon Dioxide 29 mmol/L N 22-32 Anion Gap 6 mmol/L N 2-11 Glucose 110 mg/dL High 70-100 Blood Urea Nitrogen 21 mg/dL N 6-24 Creatinine 1.00 mg/dL High 0.51-0.95 BUN/Creatinine Ratio 21.0 High 8-20 Calcium 8.8 mg/dL N 8.6-10.3 Total Protein 6.1 g/dL Low 6.4-8.9 Albumin 3.9 g/dL N 3.2-5.2 Globulin 2.2 g/dL N 2-4 Albumin/Globulin Ratio 1.8 N 1-3 Total Bilirubin 0.80 mg/dL N 0.2-1.0 Alkaline Phosphatase 76 U/L N 34-104 Alt 21 U/L N 7-52 Ast 24 U/L N 13-39 Egfr Non- 53.8 >60 Egfr 65.1 >60 7 Lipid Profile 06/26/2018 [facility] Triglycerides 78 mg/dL 8 (Trig/Chol/HDL) [address] [place] [address] [phone] Cholesterol 154 mg/dL 9 HDL Cholesterol 61.4 mg/dL 10 LDL Cholesterol 77 mg/dL 11 Lipid Panel 05/20/2018 [facility] Creatine 317 U/L High 10- 223 - [facility] [address] Kinase(CK) [place] [address] [phone] CBC W/Auto 05/20/2018 [facility] White Blood 6.5 N 3.5-10.[address] Count 10^3/[place] [address] [phone] Red Blood Count 4.01 10^6/uL N 4.00-5.40 Hemoglobin 12.3 g/dL N 12.0-16.0 Hematocrit 37 % N 35-47 Mean Corpuscular Volume 92 fL N 80-97 Mean Corpuscular Hemoglobin 31 pg N 27-31 Mean Corpuscular HGB Conc 33 g/dL N 31-36 Red Cell Distribution Width 14 % N 10.5-15 Platelet Count 153 10^3/uL N 150-450 Mean Platelet Volume 9.5 um3 N 7.4-10.4 Abs Neutrophils 3.5 10^3/uL N 1.5-7.7 Abs Lymphocytes 1.8 10^3/uL N 1.0-4.8 Abs Monocytes 0.8 10^3/uL N 0-0.8 Abs Eosinophils 0.3 10^3/uL N 0-0.6 Abs Basophils 0.1 10^3/uL N 0-0.2 Abs Nucleated RBC 0 10^3/uL Granulocyte % 54.1 % N 38-83 Lymphocyte % 28.2 % N 25-47 Monocyte % 12.5 % High 0-7 Eosinophil % 4.1 % N 0-6 Basophil % 1.1 % N 0-2 Nucleated Red Blood Cells % 0 Laboratory test 05/20/2018 [facility] Magnesium 2.0 mg/dL N 1.9-2.[address] [place] [address] [phone] Lipid Profile 05/20/2018 [facility] Triglycerides 81 mg/dL 12 (Trig/Chol/HDL) [place] [address] [phone] Cholesterol 130 mg/dL 13 HDL Cholesterol 60.7 mg/dL 14 LDL Cholesterol 53 mg/dL 15 Comp Metabolic Panel 05/20/2018 [facility] Sodium 140 mmol/L N 135-145 [place] [address] [phone] Potassium 4.3 mmol/L N 3.5-5.0 Chloride 104 mmol/L N 101-111 Co2 Carbon Dioxide 28 mmol/L N 22-32 Anion Gap 8 mmol/L N 2-11 Glucose 117 mg/dL High 70-100 Blood Urea Nitrogen 21 mg/dL N 6-24 Creatinine 0.98 mg/dL High 0.51-0.95 BUN/Creatinine Ratio 21.4 High 8-20 Calcium 9.0 mg/dL N 8.6-10.3 Total Protein 6.2 g/dL Low 6.4-8.9 Albumin 3.8 g/dL N 3.2-5.2 Globulin 2.4 g/dL N 2-4 Albumin/Globulin Ratio 1.6 N 1-3 Total Bilirubin 0.80 mg/dL N 0.2-1.0 Alkaline Phosphatase 68 U/L N 34-104 Alt 21 U/L N 7-52 Ast 30 U/L N 13-39 Egfr Non- 55.0 >60 Egfr 66.6 >60 16 Laboratory test 05/20/2018 [facility] Hemoglobin A1c 6.6 % High 4.0-5.6 17 finding 101 (Glyco HGB) [place] [address] [phone] Urine 05/20/2018 [facility] Ur Microalbumin < 15.0 Microalbumin 101 (mg/L) mg/[place] [address] [phone] Urine Creatinine 118.18 mg/dL Urine Microalbumin/Creatinine TNP ug/mg <31 18 Laboratory test 12/24/2017 [facility] Hemoglobin A1c 6.3 5-7 finding Lipid Panel - [facility] 05/23/2017 [facility] Creatine 120 U/L N 10- [address] Kinase(CK) [place] [address] [phone] CBC Auto Diff 05/23/2017 [facility] White Blood Count 6.2 N 3.5-10.[address] 10^3/[place] [address] [phone] Red Blood Count 4.35 10^6/uL N 4.0-5.4 Hemoglobin 13.3 g/dL N 12.0-16.0 Hematocrit 41 % N 35-47 Mean Corpuscular Volume 93 fL N 80-97 Mean Corpuscular Hemoglobin 31 pg N 27-31 Mean Corpuscular HGB Conc 33 g/dL N 31-36 Red Cell Distribution Width 13 % N 10.5-15 Platelet Count 159 10^3/uL N 150-450 Mean Platelet Volume 10 um3 N 7.4-10.4 Abs Neutrophils 3.3 10^3/uL N 1.5-7.7 Abs Lymphocytes 1.8 10^3/uL N 1.0-4.8 Abs Monocytes 0.7 10^3/uL N 0-0.8 Abs Eosinophils 0.4 10^3/uL N 0-0.6 Abs Basophils 0.1 10^3/uL N 0-0.2 Abs Nucleated RBC 0 10^3/uL N Granulocyte % 53.8 % N 38-83 Lymphocyte % 28.4 % N 25-47 Monocyte % 10.6 % High 1-9 Eosinophil % 5.8 % N 0-6 Basophil % 1.4 % N 0-2 Nucleated Red Blood Cells % 0 N Laboratory test 05/23/2017 [facility] B-Type 31 pg/mL N [address] [place] [address] Peptide BNP [phone] Laboratory test 05/23/2017 [facility] Hemoglobin A1c 6.6 % High Less [address] (Glyco HGB) than 6.0 [place], [place] [id number] [phone] Comp Metabolic 05/23/2017 [facility] Sodium 136 N 133-[address] mmol/[place] [address] [phone] Potassium 4.5 mmol/L N 3.5-5.0 Chloride 101 mmol/L N 101-111 Co2 Carbon Dioxide 30 mmol/L N 22-32 Anion Gap 5 mmol/L N 2-11 Glucose 117 mg/dL High 70-100 Blood Urea Nitrogen 29 mg/dL High 6-24 Creatinine 0.97 mg/dL High 0.51-0.95 BUN/Creatinine Ratio 29.9 High 8-20 Calcium 9.5 mg/dL N 8.6-10.3 Total Protein 6.3 g/dL Low 6.4-8.9 Albumin 3.6 g/dL N 3.2-5.2 Globulin 2.7 g/dL N 2-4 Albumin/Globulin Ratio 1.3 N 1-3 Total Bilirubin 0.60 mg/dL N 0.2-1.0 Alkaline Phosphatase 75 U/L N 34-104 Alt 15 U/L N 7-52 Ast 21 U/L N 13-39 Egfr Non- 55.8 N >60 Egfr 71.8 N >60 21 Urine Microalbumin 05/23/2017 [facility] Urine Creatinine 58.45 mg/dL N Random [address] [place] [address] [phone] Ur Microalbumin (mg/L) < 15.0 mg/L N Urine Microalbumin/Creatinine TNP ug/mg N <31 22 Lipid Profile 05/23/2017 [facility] Triglycerides 57 mg/dL N 23 (Trig/Chol/HDL) [address] [place] [address] [phone] Cholesterol 134 mg/dL N 24 HDL Cholesterol 56.0 mg/dL N 25 LDL Cholesterol 67 mg/dL N 26 Laboratory test 12/01/2016 [facility] Hemoglobin A1c 6.0 5-7 finding Urine Microalbumin 06/02/2016 [facility] Urine Creatinine 73.93 mg/dL N [address] [place] [address] [phone] Ur Microalbumin (mg/L) < 15.0 mg/L N Urine Microalbumin/Creatinine TNP ug/mg N <31 28 Laboratory test 06/02/2016 [facility] Hemoglobin A1c 6.3 % High Less than [address] (Glyco HGB) 6.0 [place] [address] [phone] Comp Metabolic 06/02/2016 [facility] Sodium 138 N 133-[address] mmol/[place] [address] [phone] Potassium 4.0 mmol/L N 3.5-5.0 Chloride 104 mmol/L N 101-111 Co2 Carbon Dioxide 27 mmol/L N 22-32 Anion Gap 7 mmol/L N 2-11 Glucose 116 mg/dL High 70-100 Blood Urea Nitrogen 21 mg/dL N 6-24 Creatinine 0.94 mg/dL N 0.51-0.95 BUN/Creatinine Ratio 22.3 High 8-20 Calcium 9.1 mg/dL N 8.6-10.3 Total Protein 6.2 g/dL Low 6.4-8.9 Albumin 3.8 g/dL N 3.2-5.2 Globulin 2.4 g/dL N 2-4 Albumin/Globulin Ratio 1.6 N 1-3 Total Bilirubin 0.80 mg/dL N 0.2-1.0 Alkaline Phosphatase 71 U/L N 34-104 Alt 16 U/L N 7-52 Ast 22 U/L N 13-39 Egfr Non- 58.1 N >60 Egfr 74.7 N >60 30 Lipid Profile 06/02/2016 [facility] Triglycerides 81 mg/dL N 31 (Trig/Chol/HDL) [address] [place] [address] [phone] Cholesterol 141 mg/dL N 32 HDL Cholesterol 58.0 mg/dL N 33 LDL Cholesterol 67 mg/dL N 34 Laboratory test 02/14/2016 [facility] Hemoglobin A1c 5.9 5-7 finding Basic Metabolic 08/10/2015 [facility] Sodium 138 mmol/L N 133- [address] [place] [address] [phone] Potassium 4.5 mmol/L N 3.5-5.0 Chloride 102 mmol/L N 101-111 Co2 Carbon Dioxide 30 mmol/L N 22-32 Anion Gap 6 mmol/L N 2-11 Glucose 121 mg/dL High 70-100 Blood Urea Nitrogen 26 mg/dL High 6-24 Creatinine 0.93 mg/dL N 0.51-0.95 BUN/Creatinine Ratio 28.0 High 8-20 Calcium 9.2 mg/dL N 8.6-10.3 Egfr Non- 58.9 N >60 Egfr 75.8 N >60 35 Urine Microalbumin 07/21/2015 [facility] Ur Microalbumin < 5.0 mg/L N Random [address] (mg/L) [place], [place] [id number] [phone] Urine Creatinine 113.35 mg/dL N Urine Microalbumin/Creatinine TNP ug/mg N <31 36 Lipid Profile 07/20/2015 [facility] Triglycerides 113 mg/dL N 37, 38 (Trig/Chol/HDL) [address] [place] [address] [phone] Cholesterol 217 mg/dL N 39 HDL Cholesterol 56.9 mg/dL N 40 LDL Cholesterol 138 mg/dL N 41 Comp Metabolic Panel 07/20/2015 [facility] Sodium 138 mmol/L N 133-[address] [place] [address] [phone] Potassium 4.4 mmol/L N 3.5-5.0 Chloride 102 mmol/L N 101-111 Co2 Carbon Dioxide 30 mmol/L N 22-32 Anion Gap 6 mmol/L N 2-11 Glucose 112 mg/dL High 70-100 Blood Urea Nitrogen 24 mg/dL N 6-24 Creatinine 0.94 mg/dL N 0.51-0.95 BUN/Creatinine Ratio 25.5 High 8-20 Calcium 9.2 mg/dL N 8.6-10.3 Total Protein 6.3 g/dL Low 6.4-8.9 Albumin 4.0 g/dL N 3.2-5.2 Globulin 2.3 g/dL N 2-4 Albumin/Globulin Ratio 1.7 N 1-3 Total Bilirubin 0.80 mg/dL N 0.2-1.0 Alkaline Phosphatase 80 U/L N 34-104 Alt 17 U/L N 7-52 Ast 23 U/L N 13-39 Egfr Non- 58.2 N >60 Egfr 74.9 N >60 42 Laboratory test 07/20/2015 [facility] Hemoglobin A1c 6.4 % High Less [address] (Glyco HGB) than 6.0 [place] [address] [phone] Laboratory test 07/20/2015 [facility] Vitamin D Total 26.2 Low 30-[address] 25(Oh) ng/[place] [address] [phone] Laboratory test 01/21/2015 [facility] Hemoglobin A1c 6.1 5-7 finding Urine 07/23/2014 [facility] Ur Microalbumin 5.0 N <30 [address] (mg/L) mg/[place] [address] [phone] Urine Creatinine 91.31 mg/dL N Urine Microalbumin/Creatinine 5.4 N Less Than 31 Lipid Profile 04/15/2014 [facility] Triglycerides 115 mg/dL N 45, 46 (Trig/Chol/HDL) [address] [place] [address] [phone] Cholesterol 224 mg/dL N 47 HDL Cholesterol 59.9 mg/dL N 48 LDL Cholesterol 141 mg/dL N 49 Comp Metabolic Panel 04/15/2014 [facility] Sodium 138 mmol/L N 133-[address] [place] [address] [phone] Potassium 4.9 mmol/L N 3.7-5.6 Chloride 102 mmol/L N 101-111 Co2 Carbon Dioxide 32 mmol/L N 22-32 Anion Gap 4 mmol/L N 2-11 Glucose 113 mg/dL High 70-100 Blood Urea Nitrogen 25 mg/dL High 6-24 Creatinine 0.98 mg/dL High 0.51-0.95 BUN/Creatinine Ratio 25.5 High 8-20 Calcium 9.4 mg/dL N 8.6-10.3 Total Protein 6.9 g/dL N 6.4-8.9 Albumin 4.1 g/dL N 3.2-5.2 Globulin 2.8 g/dL N 2-4 Albumin/Globulin Ratio 1.5 N 1-3 Total Bilirubin 0.60 mg/dL N 0.2-1.0 Alkaline Phosphatase 88 U/L N 34-104 Alt 21 U/L N 7-52 Ast 26 U/L N 13-39 Egfr Non- 55.6 N >60 Egfr 71.5 N >60 50 Laboratory test 04/15/2014 [facility] Hemoglobin A1c 6.5 % High Less than [address] 6[address] [place] [address] [phone] Laboratory test 07/22/2013 [facility] Hemoglobin A1c 6.1 % High Less than [address] 6[address]0 [place] [address] [phone] Glucose 103 mg/dL High 70-100 CBC Auto Diff 07/22/2013 [facility] White Blood 8.2 10^3/uL 4.8-10.[address] [place] [address] [phone] Red Blood Count 4.53 10^6/uL 4.0-5.4 Hemoglobin 14.5 g/dL 12.0-16.0 Hematocrit 42 % 35-47 Mean Corpuscular Volume 93 fL 80-97 Mean Corpuscular Hemoglobin 32 pg High 27-31 Mean Corpuscular HGB Conc 34 g/dL 31-36 Red Cell Distribution Width 13 % 10.5-15 Platelet Count 171 10^3/uL 150-450 Mean Platelet Volume 10 um3 7.4-10.4 Abs Neutrophils 4.7 10^3/uL 1.5-7.7 Abs Lymphocytes 2.5 10^3/uL 1.0-4.8 Abs Monocytes 0.7 10^3/uL 0-0.8 Abs Eosinophils 0.2 10^3/uL 0-0.6 Abs Basophils 0.1 10^3/uL 0-0.2 Abs Nucleated RBC 0.01 10^3/uL Granulocyte % 57.9 % 38-83 Lymphocyte % 30.1 % 25-47 Monocyte % 8.6 % 1-9 Eosinophil % 2.6 % 0-6 Basophil % 0.8 % 0-2 Nucleated Red Blood Cells % 0.1 Urine Culture And 07/22/2013 [facility] Urine Culture (SEE NOTE ) [address] [place] [address] [phone] Urine Culture And 07/16/2013 [facility] Urine Culture (SEE NOTE ) [address] [place] [address] [phone] CBC Auto Diff 03/20/2013 [facility] White Blood 7.6 10^3/uL 4.8-[address] Count .8 [place] [address] [phone] Red Blood Count 4.45 10^6/uL 4.0-5.4 Hemoglobin 14.0 g/dL 12.0-16.0 Hematocrit 41 % 35-47 Mean Corpuscular Volume 91 fL 80-97 Mean Corpuscular Hemoglobin 32 pg High 27-31 Mean Corpuscular HGB Conc 35 g/dL 31-36 Red Cell Distribution Width 13 % 10.5-15 Platelet Count 138 10^3/uL Low 150-450 Mean Platelet Volume 10 um3 7.4-10.4 Abs Neutrophils 4.4 10^3/uL 1.5-7.7 Abs Lymphocytes 2.2 10^3/uL 1.0-4.8 Abs Monocytes 0.7 10^3/uL 0-0.8 Abs Eosinophils 0.2 10^3/uL 0-0.6 Abs Basophils 0.1 10^3/uL 0-0.2 Abs Nucleated RBC 0.01 10^3/uL Granulocyte % 58.2 % 38-83 Lymphocyte % 29.3 % 25-47 Monocyte % 8.7 % 1-9 Eosinophil % 2.7 % 0-6 Basophil % 1.1 % 0-2 Nucleated Red Blood Cells % 0.1 CBC Auto 12/11/2012 [facility] White Blood 12.8 10^3/uL High 4.8-10.[address] [place] [address] [phone] Red Blood Count 4.38 10^6/uL 4.0-5.4 Hemoglobin 13.7 g/dL 12.0-16.0 Hematocrit 40 % 35-47 Mean Corpuscular Volume 92 fL 80-97 Mean Corpuscular Hemoglobin 31 pg 27-31 Mean Corpuscular HGB Conc 34 g/dL 31-36 Red Cell Distribution Width 13 % 10.5-15 Platelet Count 136 10^3/uL Low 150-450 Mean Platelet Volume 10 um3 7.4-10.4 Abs Neutrophils 9.8 10^3/uL High 1.5-7.7 Abs Lymphocytes 1.8 10^3/uL 1.0-4.8 Abs Monocytes 1.1 10^3/uL High 0-0.8 Abs Eosinophils 0.1 10^3/uL 0-0.6 Abs Basophils 0.1 10^3/uL 0-0.2 Abs Nucleated RBC 0 10^3/uL Granulocyte % 76.2 % 38-83 Lymphocyte % 14.1 % Low 25-47 Monocyte % 8.2 % 1-9 Eosinophil % 1.0 % 0-6 Basophil % 0.5 % 0-2 Nucleated Red Blood Cells % 0 Laboratory test 12/11/2012 [facility] Hemoglobin A1c 6.3 % High Less than [address] [place] [address] [phone] Comp Metabolic 12/11/2012 [facility] Sodium 137 133-145 Panel 101 mmol/[place] [address] [phone] Potassium 4.0 mmol/L 3.5-5.0 Chloride 102 mmol/L 101-111 Co2 Carbon Dioxide 27.0 mmol/L 22-32 Anion Gap 8.0 mmol/L 2-11 Glucose 127 mg/dL High 70-100 Blood Urea Nitrogen 17 mg/dL 6-24 Creatinine 1.00 mg/dL 0.50-1.40 BUN/Creatinine Ratio 17.0 8-20 Calcium 9.0 mg/dL 8.1-9.9 Total Protein 6.1 g/dL Low 6.2-8.1 Albumin 3.5 g/dL 3.2-5.2 Globulin 2.6 g/dL 2-4 Albumin/Globulin Ratio 1.3 1-3 Total Bilirubin 1.1 mg/dL 0.4-1.5 Alkaline Phosphatase 89 U/L 30-110 Alt 26 U/L 14-54 Ast 27 U/L 12-42 Egfr Non- 54.5 >60 Egfr 70.1 >60 56 Lipid Profile 12/11/2012 [facility] Triglycerides 83 mg/dL 40 -200 (Trig/Chol/HDL) [address] [place] [address] [phone] Cholesterol 232 mg/dL High Less than 200 HDL Cholesterol 72 mg/dL High 40-60 57 Cholesterol/HDL Ratio 3.2 Average 1-4.44 LDL Cholesterol 143.4 mg/dL High Less Than 100 58 Laboratory test 04/06/2009 [facility] TSH 2.26 MIU/ML 0.34- 5.[address] [place] [address] [phone] Thyroxine Free 0.76 NG/ML 0.61-1.24 59 Basic Metabolic Panel 04/06/2009 [facility] Sodium 140 mmol/L 135-[address] [place] [address] [phone] Potassium 4.2 mmol/L 3.5-5.0 Chloride 106 mmol/L 101-111 Co2 (Carbon Dioxide) 31.0 mmol/L 22-32 Anion Gap 3.0 mmol/L 2-11 60 Glucose 112 mg/dL High 70-100 61 BUN 19 mg/dL 6-24 Creatinine 0.90 mg/dL 0.50-1.40 One Over Creatinine 1.10 BUN/Creatinine Ratio 21.1 High 8-20 Calcium 9.1 mg/dL 8.1-9.9 62 Lipid Profile 04/06/2009 [facility] Triglyceride 132 mg/dL 40 -200 (Trig/Chol/HDL) [address] [place] [address] [phone] Cholesterol 211 mg/dL High Less Than 200 63 High Density Lipoprotein 54 mg/dL 40-60 64 Cholesterol/HDL Ratio 3.91 AVERAGE 1-4.44 Low Density Lipoprotein 131 mg/dL High Less Than 100 65 1 FASTING in 4 m Copy Result to: MIRTA FRAUSTO ([id number]) 2 Because ethnic data is not always readily available, this report includes an eGFR for both -Americans and non- Americans. The National Kidney Disease Education Program (NKDEP) does not endorse the use of the MDRD equation for patients that are not between the ages of 18 and 70, are , have extremes of body size, muscle mass, or nutritional status, or are non- or non-. According to the National Kidney Foundation, irrespective of diagnosis, the stage of the disease is based on the level of kidney function: Stage Description GFR(mL/min/1.73 m(2)) 1 Kidney damage with normal or decreased GFR 90 2 Kidney damage with mild decrease in GFR 60-89 3 Moderate decrease in GFR 30-59 4 Severe decrease in GFR 15-29 5 Kidney failure <15 (or dialysis) 3 Desirable: <150 Borderline High: 150-199 High: 200-499 Very High: >500 4 Desirable: <200 Borderline High: 200-239 High: >239 5 Low: <40 Desirable: 40-60 High: >60 6 Desirable: <100 Near Optimal: 100-129 Borderline High: 130-159 High: 160-189 Very High: >189 7 Because ethnic data is not always readily available, this report includes an eGFR for both -Americans and non- Americans. The National Kidney Disease Education Program (NKDEP) does not endorse the use of the MDRD equation for patients that are not between the ages of 18 and 70, are , have extremes of body size, muscle mass, or nutritional status, or are non- or non-. According to the National Kidney Foundation, irrespective of diagnosis, the stage of the disease is based on the level of kidney function: Stage Description GFR(mL/min/1.73 m(2)) 1 Kidney damage with normal or decreased GFR 90 2 Kidney damage with mild decrease in GFR 60-89 3 Moderate decrease in GFR 30-59 4 Severe decrease in GFR 15-29 5 Kidney failure <15 (or dialysis) 8 Desirable: <150 Borderline High: 150-199 High: 200-499 Very High: >500 9 Desirable: <200 Borderline High: 200-239 High: >239 10 Low: <40 Desirable: 40-60 High: >60 11 Desirable: <100 Near Optimal: 100-129 Borderline High: 130-159 High: 160-189 Very High: >189 12 Desirable: <150 Borderline High: 150-199 High: 200-499 Very High: >500 13 Desirable: <200 Borderline High: 200-239 High: >239 14 Low: <40 Desirable: 40-60 High: >60 15 Desirable: <100 Near Optimal: 100-129 Borderline High: 130-159 High: 160-189 Very High: >189 16 Because ethnic data is not always readily available, this report includes an eGFR for both -Americans and non- Americans. The National Kidney Disease Education Program (NKDEP) does not endorse the use of the MDRD equation for patients that are not between the ages of 18 and 70, are , have extremes of body size, muscle mass, or nutritional status, or are non- or non-. According to the National Kidney Foundation, irrespective of diagnosis, the stage of the disease is based on the level of kidney function: Stage Description GFR(mL/min/1.73 m(2)) 1 Kidney damage with normal or decreased GFR 90 2 Kidney damage with mild decrease in GFR 60-89 3 Moderate decrease in GFR 30-59 4 Severe decrease in GFR 15-29 5 Kidney failure <15 (or dialysis) 17 Therapeutic target for the treatment of diabetes mellitus patients is <7% HBA1C, and in selective patients <6.0%. Please refer to [place] [employer] diabetic care guidelines for further information. 18 Unable to calculate due to low microalbumin 19 >100 to <200 pg/mL: likely compensated congestive heart failure (CHF) 200 to 400 pg/mL: likely moderate CHF >400 pg/mL: likely moderate to severe CHF 20 Therapeutic target for the treatment of diabetes Mellitus patients is <7% HBA1C, and in selective patients <6.0%.Please refer to [place] [employer] Diabetic care guidelines for further information. 21 Because ethnic data is not always readily available, this report includes an eGFR for both -Americans and non- Americans. The National Kidney Disease Education Program (NKDEP) does not endorse the use of the MDRD equation for patients that are not between the ages of 18 and 70, are , have extremes of body size, muscle mass, or nutritional status, or are non- or non-. According to the National Kidney Foundation, irrespective of diagnosis, the stage of the disease is based on the level of kidney function: Stage Description GFR(mL/min/1.73 m(2)) 1 Kidney damage with normal or decreased GFR 90 2 Kidney damage with mild decrease in GFR 60-89 3 Moderate decrease in GFR 30-59 4 Severe decrease in GFR 15-29 5 Kidney failure <15 (or dialysis) 22 Unable to calculate due to low microalbumin 23 Desirable <150 Borderline high 150-199 High 200-499 Very High >500 24 Desirable <200 Borderline high 200-239 High >239 25 Low <40 Desirable: 40-60 High: >60 26 Desirable: <100 mg/dL Near Optimal: 100-129 mg/dL Borderline High: 130-159 mg/dL High: 160-189 mg/dL Very High: >189 mg/dL 27 [id number] 28 Unable to calculate due to low microalbumin 29 Therapeutic target for the treatment of diabetes Mellitus patients is <7% HBA1C, and in selective patients <6.0%.Please refer to [place] [employer] Diabetic care guidelines for further information. 30 Because ethnic data is not always readily available, this report includes an eGFR for both -Americans and non- Americans. The National Kidney Disease Education Program (NKDEP) does not endorse the use of the MDRD equation for patients that are not between the ages of 18 and 70, are , have extremes of body size, muscle mass, or nutritional status, or are non- or non-. According to the National Kidney Foundation, irrespective of diagnosis, the stage of the disease is based on the level of kidney function: Stage Description GFR(mL/min/1.73 m(2)) 1 Kidney damage with normal or decreased GFR 90 2 Kidney damage with mild decrease in GFR 60-89 3 Moderate decrease in GFR 30-59 4 Severe decrease in GFR 15-29 5 Kidney failure <15 (or dialysis) 31 Desirable <150 Borderline high 150-199 High 200-499 Very High >500 32 Desirable <200 Borderline high 200-239 High >239 33 Low <40 Desirable: 40-60 High: >60 34 Desirable: <100 mg/dL Near Optimal: 100-129 mg/dL Borderline High: 130-159 mg/dL High: 160-189 mg/dL Very High: >189 mg/dL 35 Because ethnic data is not always readily available, this report includes an eGFR for both -Americans and non- Americans. The National Kidney Disease Education Program (NKDEP) does not endorse the use of the MDRD equation for patients that are not between the ages of 18 and 70, are , have extremes of body size, muscle mass, or nutritional status, or are non- or non-. According to the National Kidney Foundation, irrespective of diagnosis, the stage of the disease is based on the level of kidney function: Stage Description GFR(mL/min/1.73 m(2)) 1 Kidney damage with normal or decreased GFR 90 2 Kidney damage with mild decrease in GFR 60-89 3 Moderate decrease in GFR 30-59 4 Severe decrease in GFR 15-29 5 Kidney failure <15 (or dialysis) 36 Unable to calculate due to low microalbumin 37 PT IS FASTING 38 Desirable <150 Borderline high 150-199 High 200-499 Very High >500 39 Desirable <200 Borderline high 200-239 High >239 40 Low <40 Desirable: 40-60 High: >60 41 Desirable: <100 mg/dL Near Optimal: 100-129 mg/dL Borderline High: 130-159 mg/dL High: 160-189 mg/dL Very High: >189 mg/dL 42 Because ethnic data is not always readily available, this report includes an eGFR for both -Americans and non- Americans. The National Kidney Disease Education Program (NKDEP) does not endorse the use of the MDRD equation for patients that are not between the ages of 18 and 70, are , have extremes of body size, muscle mass, or nutritional status, or are non- or non-. According to the National Kidney Foundation, irrespective of diagnosis, the stage of the disease is based on the level of kidney function: Stage Description GFR(mL/min/1.73 m(2)) 1 Kidney damage with normal or decreased GFR 90 2 Kidney damage with mild decrease in GFR 60-89 3 Moderate decrease in GFR 30-59 4 Severe decrease in GFR 15-29 5 Kidney failure <15 (or dialysis) 43 Therapeutic target for the treatment of diabetes Mellitus patients is <7% HBA1C, and in selective patients <6.0%.Please refer to [place] [employer] Diabetic care guidelines for further information. 44 Microalbuminuria in a random sample is defined as: Microalbumin/Creatinine ratio of 30-299 ug/mg. 45 FASTING 12 HOUR 46 Desirable <150 Borderline high 150-199 High 200-499 Very High >500 47 Desirable <200 Borderline high 200-239 High >239 48 Low <40 Desirable: 40-60 High: >60 49 Desirable <100 Near Optimal 100-129 Borderline high 130-159 High 160-189 Very High >189 50 Because ethnic data is not always readily available, this report includes an eGFR for both -Americans and non- Americans. The National Kidney Disease Education Program (NKDEP) does not endorse the use of the MDRD equation for patients that are not between the ages of 18 and 70, are , have extremes of body size, muscle mass, or nutritional status, or are non- or non-. According to the National Kidney Foundation, irrespective of diagnosis, the stage of the disease is based on the level of kidney function: Stage Description GFR(mL/min/1.73 m(2)) 1 Kidney damage with normal or decreased GFR 90 2 Kidney damage with mild decrease in GFR 60-89 3 Moderate decrease in GFR 30-59 4 Severe decrease in GFR 15-29 5 Kidney failure <15 (or dialysis) 51 Therapeutic target for the treatment of diabetes Mellitus patients is <7% HBA1C, and in selective patients <6.0%.Please refer to [place] [employer] Diabetic care guidelines for further information. 52 Therapeutic target for the treatment of diabetes Mellitus patients is <7% HBA1C, and in selective patients <6.0%.Please refer to [place] [employer] Diabetic care guidelines for further information. 53 RUN DATE: 07/24/13 [facility] LIVE PAGE 1 RUN TIME: [address] [place] [id number] Specimen Inquiry Name: ERLINDA URBINA : [address]: Natasha Gastelum Acct: [id number] Unit: [id number] AGE: 72 Location: [facility] Re07/22/13 SEX: F Status: DEP ER SPEC: [id number] KRISTINA: 07/22/13-[address]: Natasha Solano DO REQ: [id number] RECD: 07/22/133980 STATUS: KENYON RAMOS DR: Mirta Frausto MD _ SOURCE: URINE SPDESC: ORDERED: Urine Culture COMMENTS: Comment: IF CULTURE POSITIVE, CHECK SENSITIVITY TO KEFLEX QUERIES: Medent Number [id number] Procedure Result Verified Site Urine Culture Final 07/24/13- 1033 ML No Growth Day 2 (<1,000 CFU/mL) END OF REPORT * ML=Testing performed at Main Lab DEPARTMENT OF PATHOLOGY, [facility] [place] [employer] [place], [place] [address] Jarrett Andrade M.D. Director [facility] Permit #[id number] RUN DATE: 07/20/13 [facility] LIVE PAGE 1 RUN TIME: 914 [facility] [place] [employer] [place], [place] [address] Specimen Inquiry Name: ERLINDA URBINA : [address]: Natasha Gastelum Acct: [id number] Unit: [id number] AGE: 72 Location: [facility] Re07/16/13 SEX: F Status: DEP ER SPEC: [id number] KRISTINA: 07/16/13-[address] [facility] [address]: Natasha Solano DO REQ: [id number] RECD: 07/17/13 STATUS: KENYON RAMOS DR: KATYA Frausto MD _ SOURCE: URINE SPDESC: ORDERED: Urine Culture Procedure Result Verified Site Urine Culture Final 07/20/13- 0915 ML Organism 1 PROTEUS MIRABILIS/PENNERI [place] Count >100,000 (Many) CFU/ML 1. PROTEUS MIRABILIS/PENNERI [facility].I.[facility]. RX --------- ------ Ampicillin >=32 R Cefazolin >=64 R Cefepime S Ceftriaxone S Ciprofloxacin <=0.25 S Gentamicin 4 S Levofloxacin <=0.12 S Meropenem 1 S Nitrofurantoin 128 R Tetracycline R Pipercillin/Tazobactam <=4 S Trimethoprim/Sulfamethoxazole <=20 S Amoxicillin/Clavulanic Acid 4 S Aztreonam S Contact the Microbiology Department for any additional antibiotic reporting. END OF REPORT * ML=Testing performed at Main Lab DEPARTMENT OF PATHOLOGY, [address] [place] [address] Jarrett Andrade M.D. Director [facility] Permit #[id number] 55 Therapeutic target for the treatment of diabetes Mellitus patients is <7% HBA1C, and in selective patients <6.0%.Please refer to [place] [employer] Diabetic care guidelines for further information. 56 Because ethnic data is not always readily available, this report includes an eGFR for both -Americans and non- Americans. The National Kidney Disease Education Program (NKDEP) does not endorse the use of the MDRD equation for patients that are not between the ages of 18 and 70, are , have extremes of body size, muscle mass, or nutritional status, or are non- or non-. According to the National Kidney Foundation, irrespective of diagnosis, the stage of the disease is based on the level of kidney function: Stage Description GFR(mL/min/1.73 m(2)) 1 Kidney damage with normal or decreased GFR 90 2 Kidney damage with mild decrease in GFR 60-89 3 Moderate decrease in GFR 30-59 4 Severe decrease in GFR 15-29 5 Kidney failure <15 (or dialysis) 57 HDL Interpretation: Undesirable: High Risk: Less than 40 MG/DL Desirable: Low Risk: Greater than 60 MG/DL 58 LDL Interpretation: Low Risk Optimal Level: LDL Less than 100 MG/DL Near or Above Optimal: LDL 100-129 MG/DL Borderline High Risk: LDL 130-159 MG/DL High Risk: LDL 160-189 MG/DL Very High Risk: LDL Greater than 189 MG/DL 59 PLEASE NOTE NEW REFERENCE RANGES. 60 Anion gap measurement may be of limited value in the presence of any alkalosis, especially in a combined acid base disorder. . 61 Note change in reference range as of 07/09/08. The change was based on recommendations from the [place] [employer]. 62 Please note change in reference range effective 08 . 63 CHOLESTEROL INTERPRETATION: Desirable: Less than 200 MG/DL Borderline-High Risk: 200-239 MG/DL High-Risk: 240 MG/DL and over 64 HDL INTERPRETATION: Undesirable: High Risk: Less than 40 MG/DL Desirable: Low Risk: Greater than 60 MG/DL 65 LDL INTERPRETATION: Low Risk Optimal Level: LDL Less than 100 MG/DL Near or Above Optimal: LDL 100-129 MG/DL Borderline High Risk: LDL 130-159 MG/DL High Risk: LDL 160-189 MG/DL Very High Risk: LDL Greater than 189 MG/DL Procedures Date Code Description Status 02/03/2019 [id number] Mammogram Completed 09/04/2018 46650 ECHO Stress Test Incl Perf Contiuous ekg Monitoring Completed W/Phys Superv 08/19/2018 94205 ECHO Transthoracic, Real-Time 2D With Doppler And Completed Color Flow 08/19/2018 77947 ECHO Transthoracic, Real-Time 2D With Doppler And Completed Color Flow 07/10/2018 07703 EKG Tracing & Interpretation Completed 06/04/2018 [id number] Bone Mineral Density Test Completed 04/24/2018 81545 Inject/Drain Joint/Bursa Major W/O US Completed 02/13/2018 56228 Short Arm Cast Application Completed 02/01/2018 01002 Open TX Of Distal Radial Intra-Articular FX Or Completed Epiphyseal Septn 02/01/2018 97401 Open TX Of Distal Radial Intra-Articular FX Or Completed Epiphyseal Septn 02/01/2018 33028 Open TX Of Distal Radial Intra-Articular FX Or Completed Epiphyseal Septn 01/31/2018 62684 Closed Treatment Distal Radial FX W/Manipulation Completed 12/25/2017 93616 EKG Tracing & Interpretation Completed 09/26/2017 [id number] Diabetic Retinal Eye Exam Completed 09/03/2017 11839 Admin & Interp Of Health Risk Assessment w/ Patient Completed 03/19/2017 01108 ECHO Transthoracic, Real-Time 2D With Doppler And Completed Color Flow 02/13/2017 49366 EKG Tracing & Interpretation Completed 09/15/2016 [id number] Mammogram Completed 06/20/2016 59451 EKG Tracing & Interpretation Completed 10/27/2015 99137 ECHO Transthoracic, Real-Time 2D With Doppler And Completed Color Flow 10/04/2015 35751 EKG Tracing & Interpretation Completed 09/14/2015 [id number] Bone Mineral Density Test Completed 09/14/2015 [id number] Mammogram Completed 12/15/2014 22716 ECHO Stress Test Incl Perf Contiuous ekg Monitoring Completed W/Phys Superv 09/08/2014 [id number] Mammogram Completed 08/04/2014 72665 EKG Tracing & Interpretation Completed 07/29/2014 77913 ECHO Transthoracic, Real-Time 2D With Doppler And Completed Color Flow 09/05/2013 [id number] Mammogram Completed 08/07/2013 97886 ECHO Transthoracic, Real-Time 2D With Doppler And Completed Color Flow 06/26/2013 [id number] Colonoscopy Completed 03/20/2013 58000 EKG Tracing & Interpretation Completed 05/28/2009 [id number] Mammogram Completed 10/13/2008 [id number] Bone Mineral Density Test Completed 05/27/2008 [id number] Mammogram Completed Encounters Type Date Location Provider Dx Diagnosis Office Visit 10/14/2018 [facility] Internal Mirta Jett, Z00.00 Encntr for 2:20p Aracelis Ellington M.D. general adult [facility] medical exam w/o abnormal findings E11.9 Type 2 diabetes mellitus without complications R09.81 Nasal congestion Z12.31 Encntr screen mammogram for malignant neoplasm of breast Office Visit 09/09/2018 10:30a [facility] Debora Ferguson I10 Essential ( primary) Sarah Thomas.Kerline hypertension E78.00 Pure hypercholesterolemia, unspecified I35.0 Nonrheumatic aortic (valve) stenosis Office Visit 07/18/2018 3:40p [facility] Internal Mirta R23.3 Spontaneous Medicine Tariq Frausto ecchymoses M79.641 Pain in right hand F43.0 Acute stress reaction Office Visit 07/10/2018 10:00a [facility] Bipin Gunn I10 Essential (primary) Tariq Hines hypertension E78.00 Pure hypercholesterolemia, unspecified I35.0 Nonrheumatic aortic (valve) stenosis Office Visit 06/07/2018 10:00a [facility] Yuri Andrew, Z01.419 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 mellitus without complications I10 Essential (primary) hypertension E78.5 Hyperlipidemia, unspecified M25.541 Pain in joints of right hand M25.542 Pain in joints of left hand Office Visit 09/03/2017 3:20p [facility] Internal Mirta Z00.00 Encntr for Aracelis Frausto M.D. general adult medical exam w/o abnormal findings E11.9 Type 2 diabetes mellitus without complications I10 Essential (primary) hypertension Z12.31 Encntr screen mammogram for malignant neoplasm of breast Office Visit 06/04/2017 2:40p [facility] Internal Mirta E11.9 Type 2 diabetes Aracelis Frausto M.D. mellitus without complications I10 Essential (primary) hypertension E78.5 Hyperlipidemia, unspecified D22.39 Melanocytic nevi of other parts of face E55.9 Vitamin D deficiency, unspecified Office Visit 02/13/2017 3:20p [facility] Bipin Gunn I10 Essential (primary) Tariq Hines hypertension E78.5 Hyperlipidemia, unspecified E11.9 Type 2 diabetes mellitus without complications I35.0 Nonrheumatic aortic (valve) stenosis Office Visit 01/15/2017 11:40a [facility] Internal Sebastien Mattson NP J06.9 Acute upper Medicine respiratory infection, unspecified Office Visit 12/01/2016 4:20p [facility] Internal Mirta E11.9 Type 2 diabetes Aracelis Frausto M.D. mellitus without complications I10 Essential (primary) hypertension E78.5 Hyperlipidemia, unspecified E55.9 Vitamin D deficiency, unspecified Office Visit 08/28/2016 2:40p [facility] Internal Mirta Z00.00 Encntr for Aracelis Frausto M.D. general adult medical exam w/o abnormal findings E11.9 Type 2 diabetes mellitus without complications E78.5 Hyperlipidemia, unspecified I10 Essential (primary) hypertension Z12.31 Encntr screen mammogram for malignant neoplasm of breast Office Visit 06/20/2016 3:00p [facility] Bipin Gunn I10 Essential (primary) Tariq Hines hypertension I35.0 Nonrheumatic aortic (valve) stenosis Office Visit 02/14/2016 10:00a [facility] Internal Mirta E11.9 Type 2 diabetes Aracelis Frausto M.D. mellitus without complications I10 Essential (primary) hypertension E78.5 Hyperlipidemia, unspecified Office Visit 10/29/2015 11:20a [facility] Internal Mirta I10 Essential ( primary) Aracelis Frausto M.D. hypertension L98.9 Disorder of the skin and subcutaneous tissue, unspecified Office Visit 10/04/2015 2:40p [facility] Bipin Gunn E11.9 Type 2 diabetes Cardiology Tariq Hines mellitus without complications I10 Essential (primary) hypertension I35.0 Nonrheumatic aortic (valve) stenosis E66.3 Overweight Office Visit 07/29/2015 4:00p [facility] Internal Mirta V70.0 Examination Medicine Tariq Frausto General Medical Routine AT [facility] 250.00 Diabetes Mellitus W/O Compl Type II Or Unspec Controlled V76.12 Screening Mammogram Lianna Robertson 733.90 Bone & Cartilage Disorder Unspec 401.1 Hypertension Benign Office Visit 02/04/2015 11:30a [facility] MENDEL Hernandez 424.1 Aortic Valve Disorder 401.1 Hypertension Benign 250.00 Diabetes Mellitus W/O Compl Type II Or Unspec Controlled Office Visit 01/21/2015 4:00p [facility] Internal Mirta 250.00 Diabetes Mellitus Aracelis Frausto M.D. W/O Compl Type II Or Unspec Controlled 268.9 Vitamin D Deficiency Unspec 782.1 Rash & Other Nonspec Skin Eruption v03.82 Streptococcus Pneumoniae Vaccination Spec Other Office Visit 12/15/2014 11:30a [facility] Bipin Gunn 424.1 Aortic Valve Tariq Hines Disorder 794.31 Electrocardiogram (ECG) (EKG) Abnormal 401.1 Hypertension Benign Office Visit 08/04/2014 9:20a [facility] Bipin Hines M.D. 782.3 Edema 424.1 Aortic Valve Disorder 794.31 Electrocardiogram (ECG) (EKG) Abnormal Office Visit 07/23/2014 2:40p [facility] Internal Mirta 250.00 Diabetes Mellitus Aracelis Frausto M.D. W/O Compl Type II Or Unspec Controlled V76.10 Screening For Malignant Neoplasm Breast 424.1 Aortic Valve Disorder Office Visit 04/21/2014 3:00p [facility] Internal Mirta V70.0 Examination Aracelis Frausto M.D. General Medical Routine AT [facility] 250.00 Diabetes Mellitus W/O Compl Type II Or Unspec Controlled 424.1 Aortic Valve Disorder 796.2 Blood Pressure Reading Elevated W/O Hypertension Office Visit 04/15/2014 10:00a [facility] 782.3 Edema Aracelis Frausto M.D. 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 Unspecified 599.0 UTI Urinary Tract Infection Site Not Spec Office Visit 02/20/2014 11:40a [facility] Internal Mirta 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 Unspecified 796.2 Blood Pressure Reading Elevated W/O Hypertension Office Visit 01/19/2014 4:20p [facility] Internal Mirta 465.9 URI Upper Aracelis Frausto M.D. Respiratory Infections Acute Unspec Sites Office Visit 01/05/2014 3:40p [facility] Internal Mirta 465.9 URI Upper Aracelis Frausto M.D. Respiratory Infections Acute Unspec Sites 840.9 Sprains & Strains Shoulder & Upper Arm Unspec Office Visit 07/29/2013 2:40p [facility] Internal Mirta 790.21 Impaired Medicine Tariq Frausto Fasting Glucose 599.0 UTI Urinary Tract Infection Site Not Spec 785.2 Murmur Cardiac Undiagnosed 287.5 Thrombocytopenia Unspec Office Visit 04/18/2013 11:00a [facility] Internal Mirta V70.0 Examination Medicine Tariq Frausto General Medical Routine AT [facility] 272.4 Hyperlipidemia Other Unspec 790.21 Impaired Fasting Glucose 287.5 Thrombocytopenia Unspec 796.2 Blood Pressure Reading Elevated W/O Hypertension V76.10 Screening For Malignant Neoplasm Breast V03.82 Streptococcus Pneumoniae Vaccination Spec Other Office Visit 03/20/2013 10:40a [facility] Internal Mirta V72.84 Examination Medicine Tariq Frausto Preoperative Unspec 366.8 Cataract Other 401.1 Hypertension Benign 287.5 Thrombocytopenia Unspec 790.21 Impaired Fasting Glucose Office Visit 03/26/2009 9:20a DO Not Use [facility] Iggy Dave 401.1 Hypertension AT Juvencio Giang M.D.,FACP Benign 790.21 Impaired Fasting Glucose 272.4 Hyperlipidemia Other Unspec 840.4 Sprains & Strains Rotator Cuff (Capsule) 780.79 Malaise And Fatigue Other Office Visit 02/11/2008 11:30a DO Not Use [facility] Blanca Suarez PA 727.3 Bursitis Other AT [facility] 401.9 Hypertension Unspec 272.4 Hyperlipidemia Other Unspec 790.21 Impaired Fasting Glucose 300.02 Anxiety Disorder Generalized 530.81 Esophageal Reflux 477.9 Rhinitis Allergic Cause Unspec 719.41 Pain Joint Shoulder Region Plan of Treatment Future Appointment(s):05/02/2019 2:40 pm - Bipin Hines M.D. at [facility]04/15/2019 2:20 pm - Mirta Frausto M.D. at [facility] Internal Rnrfkuiy72/10/2019 - Mirta Frausto M.D.S61.411A Laceration without foreign body of right hand, initial encounterComments:Clean with peroxide twice, cover with bandaidSuture removal about 5/16M25.512 Pain in left shoulderComments:You may need PT for the left shoulderFollow up:2 weeks
[2019-04-03 16:15] VITALS: BP 175/84
--- NOTE | 2019-04-03 16:27 | UC ---
HPI Wound/Suture Re-check - HPI Summary HPI Summary: 78 y/o female presents to the urgent care requesting suture removal of her right hand laceration repair which was done here at the clinic on 03/27/2019. Pt reports wound is healing well and seh is feeling better. Still w/ a lot of bruises, but better. Pt denies fever, drainage, or redness around wound. Also denies SOB, CHRISTIAN, dizziness, chest pain, abdominal pain, N/V/D. - History Of Current Complaint Chief Complaint: UCLaceration Stated Complaint: SUTURE REMOVAL Time Seen by Provider: 04/03/19 16:16 Hx Obtained From: Patient Hx Last Menstrual Period: post Onset/Duration: Sudden Onset, Lasting Weeks - 7 days, Resolved Severity: Mild Pain Intensity: 2 - at touch Pain Scale Used: 0-10 Numeric Surgery Date: 03/27/19 - Right hand laceration repair - Allergies/Home Medications Allergies/Adverse Reactions: Allergies Allergy/AdvReac Type Severity Reaction Status Date / Time acetaminophen Allergy Vomiting Verified 04/03/19 16:15 [From Darvocet-N] budesonide [From Symbicort] Allergy Unknown Verified 04/03/19 16:15 Reaction Details celecoxib [From Celebrex] Allergy Rash Verified 04/03/19 16:15 ciprofloxacin [From Cipro] Allergy See Comment Verified 04/03/19 16:15 codeine Allergy Vomiting Verified 04/03/19 16:15 formoterol [From Symbicort] Allergy See Comment Verified 04/03/19 16:15 latex Allergy Rash Verified 04/03/19 16:15 naproxen Allergy Rash Verified 04/03/19 16:15 nitrofurantoin Allergy Nausea And Verified 04/03/19 16:15 [From Macrodantin] Vomiting prochlorperazine Allergy See Comment Verified 04/03/19 16:15 propoxyphene Allergy Vomiting Verified 04/03/19 16:15 [From Darvocet-N] Sulfa (Sulfonamide Allergy Vomiting Verified 04/03/19 16:15 Antibiotics) tramadol Allergy Hallucinati Verified 04/03/19 16:15 ons bactrim Allergy Unknown Uncoded 04/03/19 16:15 Reaction Details ENVIRONMENTAL Allergy EYE Uncoded 04/03/19 16:15 IRRITATION, CONSTANT NASAL DRIP PMH/Surg Hx/FS Hx/Imm Hx Previously Healthy: Yes Endocrine History: Dyslipidemia Other Endocrine History: Vitamin D defficiency - Surgical History Surgical History: Yes Surgery Procedure, Year, and Place: gallbladder removed 1973 - Family History Known Family History: Positive: Cardiac Disease - Social History Occupation: Retired Lives: With Family Alcohol Use: Rare Substance Use Type: None Smoking Status (MU): Never Smoked Tobacco - Immunization History Most Recent Influenza Vaccination: 2016 Most Recent Tetanus Shot: unknown Review of Systems All Other Systems Reviewed And Are Negative: Yes Constitutional: Positive: Negative Skin: Positive: Other - suture removal s/p laceration repair, wound healing well Eyes: Positive: Negative ENT: Positive: Negative Respiratory: Positive: Negative Cardiovascular: Positive: Negative Gastrointestinal: Positive: Negative Genitourinary: Positive: Negative Motor: Positive: Negative Neurovascular: Positive: Negative Musculoskeletal: Positive: Negative Neurological: Positive: Negative Psychological: Positive: Negative Is Patient Immunocompromised?: No Physical Exam Triage Information Reviewed: Yes Appearance: Well-Appearing, No Pain Distress, Well-Nourished - old female Vital Signs: Initial Vital Signs Temp 98 F 04/03/19 16:11 Pulse 67 04/03/19 16:11 Resp 17 04/03/19 16:11 BP 175/84 04/03/19 16:11 Pulse Ox 98 04/03/19 16:11 Vital Signs Reviewed: Yes Eye Exam: Normal Eyes: Positive: Conjunctiva Clear ENT Exam: Normal Dental Exam: Normal Neck exam: Normal Respiratory Exam: Normal Cardiovascular Exam: Normal Cardiovascular: Positive: RRR, Pulses Normal, Brisk Capillary Refill Abdominal Exam: Normal Abdomen Description: Positive: Nontender Bowel Sounds: Positive: Present Neurological Exam: Normal Psychological Exam: Normal Skin: Positive: Other - Positive facial bruises in the process of healing, lower lip w/ [address] RT hand w/ 7 sutures in placed, no signs of infection, FROM of RT hand, Course/Dx - Course Course Of Treatment: 78 y/o female presents to the urgent care requesting suture removal of her right hand laceration repair which was done here at the clinic on 03/27/2019. Pt reports wound is healing well and seh is feeling better. Still w/ a lot of bruises, but better. Pt denies fever, drainage, or redness around wound. Also denies SOB, CHRISTIAN, dizziness, chest pain, abdominal pain, N/V/D. Hx obtained. Wound healing well with crusting and moderate granulation over, non tender to palpation, [address] 7 sutures removed w/o any difficulty. Pt tolerated well procedure. wound cleaned with sterile water and bacitracin applied over and cover with sterile gauze. Pt advised if redness, pain or fever develops to return to the urgent care or f/u with PCP for further treatment. Pt' s BP elevated today, advised to decrease salt in diet and monitor BP, and f/u with PCP. Pt understood and agreed with plan of care - Differential Dx - Laceration/Wound Differential Diagnoses: Cellulitis, Dehiscence, Healing Wound, Suture Removal - Diagnosis Provider Diagnosis: Visit for suture removal, Elevated BP without diagnosis of hypertension Discharge - Sign-Out/Discharge Documenting (check all that apply): Patient Departure - d/C home All imaging exams completed and their final reports reviewed: No Studies - Discharge Plan Condition: Stable Disposition: HOME Patient Education Materials: Acute Wounds (ED) Referrals: Mirta Frausto MD [Primary Care Provider] - 1 Week Additional Instructions: 1-Please apply Bacitracin topical antibiotic over the wound. Keep wound clean and dry 2- the suture on your lip are absorbable 3-Take Ibuprofen PO q6-8hrs prn for pain or swelling. 4- Keep taking antibiotic as directed if you develop fever or redness around your wounds please return to the Urgent care or f/u w/ your PCP for further management. 5-Your BP is elevated today. Please take your BP medications and decrease salt in your diet, monitor BP and if it continues to be elevated please f/u with your PCP for further management. If you develop chest pain, dizziness, visual disturbances, SOB, or severe CHRISTIAN please go immediately to the ER for further management - Billing Disposition and Condition Condition: STABLE Disposition: Home
== END 2019-04-03 17:05 | disposition home or self-care (01) ==
LOC: UCEAST 14:06
DX: S61.411D Laceration without foreign body of right hand, subsequent encounter (principal); W45.8XXD Other foreign body or object entering through skin, subsequent encounter; R03.0 Elevated blood-pressure reading, without diagnosis of hypertension; Z88.5 Allergy status to narcotic agent; Z88.2 Allergy status to sulfonamides; Z88.8 Allergy status to other drugs, medicaments and biological substances; Z88.6 Allergy status to analgesic agent; Z88.1 Allergy status to other antibiotic agents; Z91.040 Latex allergy status
CPT/HCPCS: 99211; G0463

== ENCOUNTER 2019-04-15 15:32 | Emergency (ER) | payer OTHER ==
--- OUTSIDE RECORDS SUMMARY | 2019-04-15 15:40 | XMS REPORT | Continuity of Care Document ---
:1940 External Reference #:[id number] Author Name Ashley Melvin Care Team Providers Name Role Phone Mirta Frausto MD Primary Care Physician Unavailable Payers Date Identification Numbers Payment Provider Subscriber Effective: 2012 Policy Number: [id number] [employer] Erlinda Urbina PayID: [id number] [address] [place] Enciso [phone] Onset: 2019 Policy Number: [id number] Nicholas Urbina Group Name: [phone] [address]ax [address] PayID: [id number] ALIVIA Wade [address] Onset: 2018 Policy Number: [id number] Nicholas Urbina Group Name: 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 - [place] [employer] Tobacco Use Start: Unknown Never Smoked Cigarettes ETOH Use Rarely consumes wine Recreational Drug Use Denies Drug Use Tobacco Use Start: Unknown Patient has never smoked Smoking Status Reviewed: Patient has never 04/15/19 smoked Exercise Exercises sporadically Walking around work [...] R09.81 Mirta 10/14/2018 Propionate once daily Tariq Frausot 50mcg/Act Suspension Bactroban apply to effected 15gm L03.116 Yuri Andrew 06/07/2018 2% Cream area tid Nystatin-Triamcinolo apply to effected 30gm Z01.419 Yuri Andrew, 2017 ne area twice a day 423899-7.1Unit/GM-% Cream Atorvastatin Calcium 1 tablet by mouth 12tabs E78.5 Bipin Gunn 02/14/2016 three times weekly Tariq Hines 10mg Tablets Metoprolol Succinate 1 by mouth every 30tabs I10 [facility] 10/29/2015 ER day Tariq Frausto 25mg Tablets ER 24HR Aspirin Ec 1 by mouth 1 -2 60tabs Bipin Gunn 10/04/2015 325mg times daily prn Tariq Hines Tablets DR pain Calcium 600+D 1 to 2 po qd Bipin Gunn 08/04/2014 Tariq Hines [id number]-[id number] Tablets Preservision Areds 2 1 poQD Unknown [...] po qd 100tabs Unknown Tablets History Medications [facility] 1 by mouth 20tabs Elizabeth 02/01/2018 - [...] Cartia XT 1 by mouth 30caps Bipin FZi 12/15/2014 - 120mg Caps ER every day Tariq Hines 02/04/2015 24HR Cephalexin 1 by mouth four 28tabs 599.0 Mirta 04/02/2014 - 250mg Tablets times a day x 7 Tariq Frausto 04/15/2014 days Mucinex 1 tab twice a 60tabs Mirta 02/20/2014 - 600mg Tablets ER day by mouth as Tariq Frausto 04/21/2014 12HR needed Flovent HFA 2 puffs twice 1units 493.00 Mirta 02/20/2014 - 44mcg/Act daily for 1-2 Tariq Frausto 02/20/2014 Aerosol months Symbicort inhale two 10.2units 493.00 Mirta 02/20/2014 - 80-4.5mcg/Act puffs by mouth Tariq Frausto 04/02/2014 Aerosol twice a day Benzonatate take 1 capsule 30caps 465.9 Mirta 01/19/2014 - 200mg Capsules by mouth three Tariq Frausto 02/20/2014 times a day if needed Cephalexin 1 tablet 4 40caps Mirta 01/08/2014 - 500mg Capsules times daily for Tariq Frausto 02/20/2014 10 days Flovent HFA 2 puffs twice 1units Alyssa Quezada 01/07/2014 - 44mcg/Act daily for 10 M.DZi, FACP 01/19/2014 Aerosol days Benzonatate take 1 capsule 30caps 465.9 [facility] 01/05/2014 - 200mg Capsules by mouth three Tariq Frausto 01/19/2014 times a day if needed Guaifenesin ac 2 tsp po q 4 h 4oz 465.9 Mirta 01/05/2014 - 100-10mg/5ML prn cough Tariq Frausto 01/19/2014 Syrup Aspirin [facility] 03/20/2013 - Tariq Frausto 04/18/2013 Chlorpheniramine prn [facility] 03/20/2013 - Maleate Tariq Frausto 01/15/2017 4mg Tablets Triamterene/Hydrochloro take 1 capsule 30caps Iggy Dave 04/06/2008 - thiazide by mouth every Tariq Giang,[facility] 03/26/2009 37.5-25 Caps morning Bactrim DS si bid x 3 6tabs Iggy Dave 12/06/2007 - 800-160 Tablets days Tariq Giang,[facility] 12/09/2007 Dyazide 1 po qd 30caps Iggy Dave - 37.5-25 Capsules Tariq Giang,[facility] 03/20/2013 Calcium 600 1 po bid 60tabs [...] CPT Code Status Date Vaccine Lot # [id number] Given 08/01/2018 Fluzone High Dose 16401 Given 01/21/2015 Pneumococcal Conjugate Vaccine 13 Valent For [id number] Intramuscular Use 72300 Given 04/18/2013 Pneumonia Vaccine [id number] Vital Signs Date Vital Result Comment 04/15/2019 2:35pm Height 61.5 inches 5'1.50" Weight 171.00 lb Heart Rate 66 /min BP Systolic Sitting 185 mmHg second BP Diastolic Sitting 88 mmHg second BP Systolic Standing 160 mmHg first BP Diastolic Standing 96 mmHg first O2 % BldC Oximetry 96 % BMI (Body Mass Index) 31.8 kg/m2 03/28/2019 5:07pm Height 61.5 inches 5'1.50" Weight [...] Mass Index) 30.3 kg/m2 Last Menstrual Period [id number] 05/27/2018 4:09pm Height 61.5 inches 5'1.50" Weight [...] H/L Range Note Lipid Panel - 11/22/2018 [facility] Creatine 182 U/L N 10-223 1 [address]) [place] [address] [phone] Comp Metabolic 11/22/2018 [facility] Sodium 139 mmol/L N 135- [address] [place] [address] [phone] Potassium 4.2 mmol/L N 3.5-5.0 Chloride 104 [...] Egfr 71.4 >60 2 Lipid Profile 11/22/2018 [facility] Triglycerides 139 mg/dL 3 (Trig/Chol/HDL) [address] [place] [address] [phone] Cholesterol 155 mg/dL 4 HDL Cholesterol 67.0 mg/dL 5 LDL Cholesterol 60 mg/dL 6 Laboratory test 10/14/2018 [facility] House Hemoglobin A1c 6.6 5-7 finding Lipid Panel - JFM 06/26/2018 [facility] Creatine 251 U/L High 10-[address] Kinase(CK) [place] [address] [phone] Comp Metabolic 06/26/2018 [facility] Sodium 139 mmol/L N 135- [address] [place] [address] [phone] Potassium 4.1 mmol/L N 3.5-5.0 Chloride 104 [...] Egfr 65.1 >60 7 Lipid Profile 06/26/2018 [facility] Triglycerides 78 mg/dL 8 (Trig/Chol/HDL) [address] [place] [address] [phone] Cholesterol 154 mg/dL 9 HDL Cholesterol 61.4 mg/dL 10 LDL Cholesterol 77 mg/dL 11 Lipid Panel 05/20/2018 [facility] Creatine 317 U/L High 10- 223 - JFM [address] Kinase(CK) [place] [address] [phone] CBC W/Auto 05/20/2018 [facility] White Blood 6.5 N 3.5-10.[address] Count 10^3/[place] [address] [phone] Red Blood Count 4.01 10^6/uL N 4.00-5.40 [...] Blood Cells % 0 Laboratory test 05/20/2018 [facility] Magnesium 2.0 mg/dL N 1.9-2.7 finding [address] [place] [address] [phone] Lipid Profile 05/20/2018 [facility] Triglycerides 81 mg/dL 12 (Trig/Chol/HDL) [address] [place] [address] [phone] Cholesterol 130 mg/dL 13 HDL Cholesterol 60.7 mg/dL 14 LDL Cholesterol 53 mg/dL 15 Comp Metabolic Panel 05/20/2018 [facility] Sodium 140 mmol/L N 135-145 [address] [place] [address] [phone] Potassium 4.3 mmol/L N 3.5-5.0 Chloride 104 [...] Egfr 66.6 >60 16 Laboratory test 05/20/2018 [facility] Hemoglobin A1c 6.6 % High 4.0-5.6 [address] (Glyco HGB) [place] [address] [phone] Urine 05/20/2018 [facility] Ur Microalbumin < 15.[address] (mg/L) mg/[place] [address] [phone] Urine Creatinine 118.18 mg/dL Urine Microalbumin/Creatinine TNP ug/mg <31 18 Laboratory test 12/24/2017 [facility] House Hemoglobin A1c 6.3 5-7 finding Lipid Panel - JFM 05/23/2017 [facility] Creatine 120 U/L N 10- [address] Kinase(CK) [place] [address] [phone] CBC Auto Diff 05/23/2017 [facility] White Blood Count 6.2 N 3.5-10.[address] 10^3/[place] [address] [phone] Red Blood Count 4.35 10^6/uL N 4.0-5.4 [...] Cells % 0 N Laboratory test 05/23/2017 [facility] B-Type 31 pg/mL N [address] [place] [address] Peptide BNP [phone] Laboratory test 05/23/2017 [facility] Hemoglobin A1c 6.6 % High Less [address] (Glyco HGB) than 6.0 [place] [address] [phone] Comp Metabolic 05/23/2017 [facility] Sodium 136 N 133-[address] mmol/[place] [address] [phone] Potassium 4.5 mmol/L N 3.5-5.0 Chloride 101 [...] 71.8 N >60 21 Urine Microalbumin 05/23/2017 [facility] Urine Creatinine 58.45 mg/dL N Random [address] [place] [address] [phone] Ur Microalbumin (mg/L) < 15.0 mg/L N Urine Microalbumin/Creatinine TNP ug/mg N <31 22 Lipid Profile 05/23/2017 [facility] Triglycerides 57 mg/dL N 23 (Trig/Chol/HDL) [address] [place] [address] [phone] Cholesterol 134 mg/dL N 24 HDL Cholesterol 56.0 mg/dL N 25 LDL Cholesterol 67 mg/dL N 26 Laboratory test 12/01/2016 [facility] House Hemoglobin A1c 6.0 5-7 finding Urine Microalbumin 06/02/2016 [facility] Urine Creatinine 73.93 mg/dL N [address] [place] [address] [phone] Ur Microalbumin (mg/L) < 15.0 mg/L N Urine Microalbumin/Creatinine TNP ug/mg N <31 28 Laboratory test 06/02/2016 [facility] Hemoglobin A1c 6.3 % High Less than [address] (Glyco HGB) 6.0 [place] [address] [phone] Comp Metabolic 06/02/2016 [facility] Sodium 138 N 133-[address] mmol/[place] [address] [phone] Potassium 4.0 mmol/L N 3.5-5.0 Chloride 104 [...] 74.7 N >60 30 Lipid Profile 06/02/2016 [facility] Triglycerides 81 mg/dL N 31 (Trig/Chol/HDL) [address] [place] [address] [phone] Cholesterol 141 mg/dL N 32 HDL Cholesterol 58.0 mg/dL N 33 LDL Cholesterol 67 mg/dL N 34 Laboratory test 02/14/2016 [facility] House Hemoglobin A1c 5.9 5-7 finding Basic Metabolic 08/10/2015 [facility] Sodium 138 mmol/L N 133- [address] [address] [phone] Potassium 4.5 mmol/L N 3.5-5.0 Chloride 102 mmol/L N 101-111 Co2 Carbon Dioxide 30 mmol/L N 22-32 Anion Gap 6 mmol/L N 2-11 Glucose 121 mg/dL High 70-100 Blood Urea Nitrogen 26 mg/dL High 6-24 Creatinine 0.93 mg/dL N 0.51-0.95 BUN/Creatinine Ratio 28.0 High 8-20 Calcium 9.2 mg/dL N 8.6-10.3 Egfr Non- 58.9 N >60 Egfr 75.8 N >60 35 Urine Microalbumin 07/21/2015 [facility] Ur Microalbumin < 5.0 mg/L N Random [address] [facility] (mg/L) [place] [address] [phone] Urine Creatinine 113.35 mg/dL N Urine Microalbumin/Creatinine TNP ug/mg N <31 36 Lipid Profile 07/20/2015 [facility] Triglycerides 113 mg/dL N 37, 38 (Trig/Chol/HDL) [address] [place] [address] [phone] Cholesterol 217 mg/dL N 39 HDL Cholesterol 56.9 mg/dL N 40 LDL Cholesterol 138 mg/dL N 41 Comp Metabolic Panel 07/20/2015 [facility] Sodium 138 mmol/L N 133-145 [address] [place] [address] [phone] Potassium 4.4 mmol/L N 3.5-5.0 Chloride 102 [...] 74.9 N >60 42 Laboratory test 07/20/2015 [facility] Hemoglobin A1c 6.4 % High Less [address] (Glyco HGB) than 6.0 [place] [address] [phone] Laboratory test 07/20/2015 [facility] Vitamin D Total 26.2 Low 30-[address] 25(Oh) ng/mL [place], [place] [phone] Laboratory test 01/21/2015 [facility] Hemoglobin A1c 6.1 5-7 finding Urine 07/23/2014 [facility] Ur Microalbumin 5.0 N <30 [address] (mg/L) mg/[place] [address] [phone] Urine Creatinine 91.31 mg/dL N Urine Microalbumin/Creatinine 5.4 N Less Than 31 Lipid Profile 04/15/2014 [facility] Triglycerides 115 mg/dL N 45, 46 (Trig/Chol/HDL) [address] [place] [address] [phone] Cholesterol 224 mg/dL N 47 HDL Cholesterol 59.9 mg/dL N 48 LDL Cholesterol 141 mg/dL N 49 Comp Metabolic Panel 04/15/2014 [facility] Sodium 138 mmol/L N 133-[address] [place] [address] [phone] Potassium 4.9 mmol/L N 3.7-5.6 Chloride 102 [...] 71.5 N >60 50 Laboratory test 04/15/2014 [facility] Hemoglobin A1c 6.5 % High Less than [address] 6[address]0 [place] [address] [phone] Laboratory test 07/22/2013 [facility] Hemoglobin A1c 6.1 % High Less than [address] 6[address]0 [place] [address] [phone] Glucose 103 mg/dL High 70-100 CBC Auto Diff 07/22/2013 [facility] White Blood 8.2 10^3/uL 4.8-10.[address] [place] [address] [phone] Red Blood Count 4.53 10^6/uL 4.0-5.4 Hemoglobin [...] Cells % 0.1 Urine Culture And 07/22/2013 [facility] Urine Culture (SEE NOTE ) [address] [place] [address] [phone] Urine Culture And 07/16/2013 [facility] Urine Culture (SEE NOTE ) [address] [place] [address] [phone] CBC Auto Diff 03/20/2013 [facility] White Blood 7.6 10^3/uL 4.8-[address] Count .8 [place] [address] [phone] Red Blood Count 4.45 10^6/uL 4.0-5.4 Hemoglobin [...] Blood Cells % 0.1 CBC Auto 12/11/2012 [facility] White Blood 12.8 10^3/uL High 4.8-10.[address] [place] [address] [phone] Red Blood Count 4.38 10^6/uL 4.0-5.4 Hemoglobin [...] Blood Cells % 0 Laboratory test 12/11/2012 [facility] Hemoglobin A1c 6.3 % High Less than [address] 6[address]0 [place] [address] [phone] Comp Metabolic 12/11/2012 [facility] Sodium 137 133-[address] mmol/[place] [address] [phone] Potassium 4.0 mmol/L 3.5-5.0 Chloride 102 mmol/L [...] Egfr 70.1 >60 56 Lipid Profile 12/11/2012 [facility] Triglycerides 83 mg/dL 40 -200 (Trig/Chol/HDL) [address] [place] [address] [phone] Cholesterol 232 mg/dL High Less than 200 HDL Cholesterol 72 mg/dL High 40-60 57 Cholesterol/HDL Ratio 3.2 Average 1-4.44 LDL Cholesterol 143.4 mg/dL High Less Than 100 58 Laboratory test 04/06/2009 [facility] TSH 2.26 MIU/ML 0.34- 5.60 finding [address] [place] [address] [phone] Thyroxine Free 0.76 NG/ML 0.61-1.24 59 Basic Metabolic Panel 04/06/2009 [facility] Sodium 140 mmol/L 135-145 [address] [place] [address] [phone] Potassium 4.2 mmol/L 3.5-5.0 Chloride 106 mmol/L 101-111 Co2 (Carbon Dioxide) 31.0 mmol/L 22-32 Anion Gap 3.0 mmol/L 2-11 60 Glucose 112 mg/dL High 70-100 61 BUN 19 mg/dL 6-24 Creatinine 0.90 mg/dL 0.50-1.40 One Over Creatinine 1.10 BUN/Creatinine Ratio 21.1 High 8-20 Calcium 9.1 mg/dL 8.1-9.9 62 Lipid Profile 04/06/2009 [facility] Triglyceride 132 mg/dL 40 -200 (Trig/Chol/HDL) [address] [place] [address] [phone] Cholesterol 211 mg/dL High Less Than 200 63 High Density Lipoprotein 54 mg/dL 40-60 64 Cholesterol/HDL Ratio 3.91 AVERAGE 1-4.44 Low Density Lipoprotein 131 mg/dL High Less Than 100 65 1 FASTING in 4 m Copy Result to: MIRTA FRAUSTO ([id number]) 2 Because ethnic data is not always [...] in selective patients <6.0%. Please refer to [employer] diabetic care guidelines for further information. 18 Unable to calculate due to low microalbumin 19 >100 to <200 pg/mL: likely compensated congestive heart failure (CHF) 200 to 400 pg/mL: likely moderate CHF >400 pg/mL: likely moderate to severe CHF 20 Therapeutic target for the treatment of diabetes Mellitus patients is <7% HBA1C, and in selective patients <6.0%.Please refer to [employer] Diabetic care guidelines for further [...] 160-189 mg/dL Very High: >189 mg/dL 27 [id number] 28 Unable to calculate due to low microalbumin 29 Therapeutic target for the treatment of diabetes Mellitus patients is <7% HBA1C, and in selective patients <6.0%.Please refer to [employer] Diabetic care guidelines for further [...] and in selective patients <6.0%.Please refer to [employer] Diabetic care guidelines for further [...] and in selective patients <6.0%.Please refer to [employer] Diabetic care guidelines for further information. 52 Therapeutic target for the treatment of diabetes Mellitus patients is <7% HBA1C, and in selective patients <6.0%.Please refer to [employer] Diabetic care guidelines for further information. 53 RUN DATE: 07/24/13 [facility] LAB LIVE PAGE 1 RUN TIME: [address] [place] [address] Specimen Inquiry Name: ERLINDA URBINA : [address]: Natasha Gastelum Acct: [id number] Unit: [id number] AGE: 72 Location: [facility] Re07/22/13 SEX: F Status: DEP ER SPEC: [id number] KRISTINA: 07/22/13-11[address] [facility] [address]: Natasha Solano DO REQ: [id number] RECD: 07/22/136633 STATUS: KENYON RAMOS DR: Mirta Frausto MD _ SOURCE: URINE SPDESC: ORDERED: Urine Culture COMMENTS: Comment: IF CULTURE POSITIVE, CHECK SENSITIVITY TO KEFLEX QUERIES: Medent Number [id number] Procedure Result Verified Site Urine Culture Final 07/24/13- 1033 ML No Growth Day 2 (<1,000 CFU/mL) END OF REPORT * ML=Testing performed at Main Lab DEPARTMENT OF PATHOLOGY, [address] [place] [address] Jarrett Andrade M.D. Director [facility] Permit #[id number] RUN DATE: 07/20/13 [facility] LAB LIVE PAGE 1 RUN TIME: [address] [place] [address] Specimen Inquiry Name: ERLINDA URBINA : [address]: Natasha Gastelum Acct: [id number] Unit: [id number] AGE: 72 Location: [facility] Re07/16/13 SEX: F Status: DEP ER SPEC: [id number] KRISTINA: 07/16/13-[address] [facility] [address]: Natasha Solano DO REQ: [id number] RECD: 07/17/136 STATUS: KENYON RAMOS DR: KATYA Frausto MD _ SOURCE: URINE SPDESC: ORDERED: Urine Culture Procedure Result Verified Site Urine Culture Final 07/20/13- 0915 ML Organism 1 PROTEUS MIRABILIS/PENNERI [place] Count >100,000 (Many) CFU/ML 1. PROTEUS MIRABILIS/PENNERI [...] performed at Main Lab DEPARTMENT OF PATHOLOGY, [address] [place] [address] Jarrett Andrade M.D. Director [facility] Permit #[id number] 55 Therapeutic target for the treatment of diabetes Mellitus patients is <7% HBA1C, and in selective patients <6.0%.Please refer to [employer] Diabetic care guidelines for further [...] change was based on recommendations from the [employer]. 62 Please note change in [...] 189 MG/DL Procedures Date Code Description Status 03/21/2019 240046677 Diabetic Retinal Eye Exam Completed 02/03/2019 [id number] Mammogram Completed 09/04/2018 35965 ECHO Stress Test Incl Perf Contiuous ekg Monitoring Completed W/Phys Superv 08/19/2018 94836 ECHO Transthoracic, Real-Time 2D With Doppler And Completed Color Flow 08/19/2018 38353 ECHO Transthoracic, Real-Time 2D With Doppler And Completed Color Flow 07/10/2018 92949 EKG Tracing & Interpretation Completed 06/04/2018 085283025 Bone Mineral Density Test Completed 04/24/2018 78548 Inject/Drain Joint/Bursa Major W/O US Completed 02/13/2018 85575 Short Arm Cast Application Completed 02/01/2018 97028 Open TX Of Distal Radial Intra-Articular FX Or Completed Epiphyseal Septn 02/01/2018 71515 Open TX Of Distal Radial Intra-Articular FX Or Completed Epiphyseal Septn 02/01/2018 99615 Open TX Of Distal Radial Intra-Articular FX Or Completed Epiphyseal Septn 01/31/2018 65033 Closed Treatment Distal Radial FX W/Manipulation Completed 12/25/2017 59509 EKG Tracing & Interpretation Completed 09/26/2017 263701244 Diabetic Retinal Eye Exam Completed 09/03/2017 70974 Admin & Interp Of Health Risk Assessment w/ Patient Completed 03/19/2017 29569 ECHO Transthoracic, Real-Time 2D With Doppler And Completed Color Flow 02/13/2017 09233 EKG Tracing & Interpretation Completed 09/15/2016 96499336 Mammogram Completed 06/20/2016 48738 EKG Tracing & Interpretation Completed 10/27/2015 92087 ECHO Transthoracic, Real-Time 2D With Doppler And Completed Color Flow 10/04/2015 69733 EKG Tracing & Interpretation Completed 09/14/2015 38685758 Mammogram Completed 09/14/2015 043469756 Bone Mineral Density Test Completed 12/15/2014 09721 ECHO Stress Test Incl Perf Contiuous ekg Monitoring Completed W/Phys Superv 09/08/2014 [id number] Mammogram Completed 08/04/2014 03934 EKG Tracing & Interpretation Completed 07/29/2014 01222 ECHO Transthoracic, Real-Time 2D With Doppler And Completed Color Flow 09/05/2013 29711487 Mammogram Completed 08/07/2013 82079 ECHO Transthoracic, Real-Time 2D With Doppler And Completed Color Flow 06/26/2013 04601635 Colonoscopy Completed 03/20/2013 46810 EKG Tracing & Interpretation Completed 05/28/2009 62107669 Mammogram Completed 10/13/2008 062337320 Bone Mineral Density Test Completed 05/27/2008 01804685 Mammogram Completed Encounters Type Date Location Provider Dx Diagnosis Office Visit 03/28/2019 [facility] Frausto, S61.411A Laceration without 5:00p Aracelis Potter foreign body of right hand, init encntr M25.512 Pain in left shoulder S00.33xA Contusion of nose, initial encounter Office Visit 10/14/2018 2:20p [facility] Z00.00 Encntr for Medicine - Tariq Frausto general adult [facility] medical exam w/o abnormal findings E11.9 Type 2 diabetes mellitus without complications R09.81 Nasal congestion Z12.31 Encntr screen mammogram for malignant neoplasm of breast Office Visit 09/09/2018 10:30a [facility] Debora Ferguson I10 Essential ( primary) William, N.PZi hypertension E78.00 Pure hypercholesterolemia, unspecified I35.0 Nonrheumatic aortic (valve) stenosis Office Visit 07/18/2018 3:40p [facility] Internal Mirta R23.3 Spontaneous Medicine Tariq Frausto ecchymoses M79.641 Pain in right hand F43.0 Acute stress reaction Office Visit 07/10/2018 10:00a [facility] Bipin Gunn I10 Essential (primary) Tariq Hines hypertension E78.00 Pure hypercholesterolemia, unspecified I35.0 Nonrheumatic aortic (valve) stenosis Office Visit 06/07/2018 10:00a [facility] Kamran, Z01.419 Encntr for obstetrics/gynecology [facility] MD exam (general) (routine) w/o abn findings L03.116 Cellulitis of left lower limb L29.0 Pruritus ani Office Visit 05/27/2018 4:00p [facility] Internal Mirta E11.9 Type 2 diabetes Aracelis Frausto M.D. 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 mellitus without complications I10 Essential (primary) hypertension E78.5 Hyperlipidemia, unspecified M25.541 Pain in joints of right hand M25.542 Pain in joints of left hand Office Visit 09/03/2017 3:20p [facility] Internal Mirta Z00.00 Encntr for Aracelis Frausto M.D. general adult medical exam w/o abnormal findings E11.9 Type 2 diabetes mellitus without complications I10 Essential (primary) hypertension Z12.31 Encntr screen mammogram for malignant neoplasm of breast Office Visit 06/04/2017 2:40p [facility] Internal Mirta E11.9 Type 2 diabetes Aracelis Frausto M.D. mellitus without complications I10 Essential (primary) hypertension E78.5 Hyperlipidemia, unspecified D22.39 Melanocytic nevi of other parts of face E55.9 Vitamin D deficiency, unspecified Office Visit 02/13/2017 3:20p [facility] Bipin Gunn I10 Essential (primary) Tariq Hines hypertension E78.5 Hyperlipidemia, unspecified E11.9 Type 2 diabetes mellitus without complications I35.0 Nonrheumatic aortic (valve) stenosis Office Visit 01/15/2017 11:40a [facility] Sebastien Mattson NP J06.9 Acute upper Medicine respiratory infection, unspecified Office Visit 12/01/2016 4:20p [facility] Mirta E11.9 Type 2 diabetes Aracelis Frausto M.D. mellitus without complications I10 Essential (primary) hypertension E78.5 Hyperlipidemia, unspecified E55.9 Vitamin D deficiency, unspecified Office Visit 08/28/2016 2:40p [facility] Mirta Z00.00 Encntr vianca Frausto M.D. general adult medical exam w/o abnormal findings E11.9 Type 2 diabetes mellitus without complications E78.5 Hyperlipidemia, unspecified I10 Essential (primary) hypertension Z12.31 Encntr screen mammogram for malignant neoplasm of breast Office Visit 06/20/2016 3:00p [facility] Bipin Gunn I10 Essential (primary) Tariq Hines hypertension I35.0 Nonrheumatic aortic (valve) stenosis Office Visit 02/14/2016 10:00a [facility] Mirta E11.9 Type 2 diabetes Aracelis Frausto M.D. mellitus without complications I10 Essential (primary) hypertension E78.5 Hyperlipidemia, unspecified Office Visit 10/29/2015 11:20a [facility] Mirta I10 Essential ( primary) Medicine Tariq Frausto hypertension L98.9 Disorder of the skin and subcutaneous tissue, unspecified Office Visit 10/04/2015 2:40p [facility] Gunn E11.9 Type 2 diabetes Cardiology Tariq Hines mellitus without complications I10 Essential (primary) hypertension I35.0 Nonrheumatic aortic (valve) stenosis E66.3 Overweight Office Visit 07/29/2015 4:00p [facility] Mirta V70.0 Examination Aracelis Frausto M.D. General Medical Routine AT [facility] 250.00 Diabetes Mellitus W/O Compl Type II Or Unspec Controlled V76.12 Screening Mammogram Malig John Other 733.90 Bone & Cartilage Disorder Unspec 401.1 Hypertension Benign Office Visit 02/04/2015 11:30a [facility] MENDEL Hernandez 424.1 Aortic Valve Disorder 401.1 Hypertension Benign 250.00 Diabetes Mellitus W/O Compl Type II Or Unspec Controlled Office Visit 01/21/2015 4:00p [facility] Mirta 250.00 Diabetes Mellitus Aracelis Frausto M.D. W/O Compl Type II Or Unspec Controlled 268.9 Vitamin D Deficiency Unspec 782.1 Rash & Other Nonspec Skin Eruption v03.82 Streptococcus Pneumoniae Vaccination Spec Other Office Visit 12/15/2014 11:30a [facility] Bipin Gunn 424.1 Aortic Valve Tariq Hines Disorder 794.31 Electrocardiogram (ECG) (EKG) Abnormal 401.1 Hypertension Benign Office Visit 08/04/2014 9:20a [facility] Bipin Hines M.D. 782.3 Edema 424.1 Aortic Valve Disorder 794.31 Electrocardiogram (ECG) (EKG) Abnormal Office Visit 07/23/2014 2:40p [facility] Mirta 250.00 Diabetes Mellitus Aracelis Frausto M.D. W/O Compl Type II Or Unspec Controlled V76.10 Screening For Malignant Neoplasm Breast 424.1 Aortic Valve Disorder Office Visit 04/21/2014 3:00p [facility] Mirta V70.0 Examination Aracelis Frausto M.D. 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 Unspecified 796.2 Blood Pressure Reading Elevated W/O Hypertension Office Visit 01/19/2014 4:20p [facility] Mirta 465.9 URI Upper Aracelis Frausto M.D. Respiratory Infections Acute Unspec Sites Office Visit 01/05/2014 3:40p [facility] Mir[place] 465.9 URI Upper Medicine Tariq Frausto Respiratory Infections Acute Unspec Sites 840.9 Sprains & Strains Shoulder & Upper Arm Unspec Office Visit 07/29/2013 2:40p [facility] Mir[place] 790.21 Impaired Medicine Tariq Frausto Fasting Glucose 599.0 UTI Urinary Tract Infection Site Not Spec 785.2 Murmur Cardiac Undiagnosed 287.5 Thrombocytopenia Unspec Office Visit 04/18/2013 11:00a [facility] Mirta V70.0 Examination Medicine Tariq Frausto General Medical Routine AT [facility] 272.4 Hyperlipidemia Other Unspec 790.21 Impaired Fasting Glucose 287.5 Thrombocytopenia Unspec 796.2 Blood Pressure Reading Elevated W/O Hypertension V76.10 Screening For Malignant Neoplasm Breast V03.82 Streptococcus Pneumoniae Vaccination Spec Other Office Visit 03/20/2013 10:40a [facility] Mirta V72.84 Examination Aracelis Frausto M.D. Preoperative Unspec 366.8 Cataract Other 401.1 Hypertension Benign 287.5 Thrombocytopenia Unspec 790.21 Impaired Fasting Glucose Office Visit 03/26/2009 9:20a DO Not Use Dynamite Packing Machine Feeder Iggy Dave 401.1 Hypertension AT Juvencio Giang M.D.,FACP Benign 790.21 Impaired Fasting Glucose 272.4 Hyperlipidemia Other Unspec 840.4 Sprains & Strains Rotator Cuff (Capsule) 780.79 Malaise And Fatigue Other Office Visit 02/11/2008 11:30a DO Not Use Dynamite Packing Machine Feeder Blanca Suarez PA 727.3 Bursitis Other AT [facility] 401.9 Hypertension Unspec 272.4 Hyperlipidemia Other Unspec 790.21 Impaired Fasting Glucose 300.02 Anxiety Disorder Generalized 530.81 Esophageal Reflux 477.9 Rhinitis Allergic Cause Unspec 719.41 Pain Joint Shoulder Region Plan of Treatment Future Appointment(s):05/19/2019 3:40 pm - Mirta Frausto M.D. at [facility] Fawhmzlh01/25/2019 3:40 pm - Mirta Frausto M.D. at [facility] Hjbqtinc86/14/2019 2:40 pm - Bipin Hines M.D. at [facility]04/15 - Mirta Frausto M.D.S00.33xD Contusion of nose, subsequent encounterComments:Face is healing well.S60.222D Contusion of left hand, subsequent idysukpwdT20.512 Pain in left shoulderNew Therapy:Physical TherapyFollow up:8 weeks for WC and 1 month for kvknbqjgW04.511D Laceration without foreign body of lip, subsequent encounterComments:Go to [facility] to have the [facility] the lip removed
--- OUTSIDE RECORDS SUMMARY | 2019-04-15 15:41 | XMS REPORT | Continuity of Care Document ---
:1940 External Reference #:[id number] Author Name Ashley Melvin Care Team Providers Name Role Phone Mirta Frausto MD Primary Care Physician Unavailable Payers Date Identification Numbers Payment Provider Subscriber Effective: 2012 Policy Number: [id number] [employer] Erlinda Urbina PayID: [id number] [address] [place]ASH[place] Enciso [id number] Onset: 2019 Policy Number: [id number] Nicholas Urbina Group Name: [phone] Fax [address] PayID: [id number] ALIVIA Wade [address] Onset: 2018 Policy Number: [id number] Nicholas Urbina Group Name: [address] PayID: ALIVIA Perez [id number] Expires: 2007 Policy Number: [id number] [employer] Erlinda Urbina PayID: [id number] [address] [place] [address] Effective: 2007 Policy Number: [id number] [employer] Erlinda Urbina Expires: 2012 Group Number: [id number] [address] PayID: [id number] LASHON Enciso [id number] Advance Directives Type Date Description Status Comment [...] With Alone Occupation Works In A Library secretary administrative assistant - [employer] Tobacco Use Start: Unknown Never Smoked Cigarettes [...] Andrew, 2017 ne area twice a day 051132-4.1Unit/GM-% Cream Atorvastatin Calcium 1 tablet by mouth 12tabs E78.5 Bipin Gunn 02/14/2016 three times weekly Tariq Hines 10mg Tablets Metoprolol Succinate 1 by mouth every 30tabs I10 [facility] 10/29/2015 ER day Tariq Frausto 25mg Tablets ER 24HR Aspirin Ec 1 by mouth 1 -2 60tabs Bipin Gunn 10/04/2015 325mg times daily prn Tariq Hines Tablets DR pain Calcium 600+D 1 to 2 po qd Bipin Gunn 08/04/2014 Tariq Hines [id number] Tablets Preservision Areds 2 1 poQD Unknown [...] po qd 100tabs Unknown Tablets History Medications [place] 1 by mouth 20tabs Elizabeth 02/01/2018 - [...] days Benzonatate take 1 capsule 30caps 465.9 [facility] 01/05/2014 - 200mg Capsules by mouth three Tariq Frausto 01/19/2014 times a day if needed Guaifenesin ac 2 tsp po q 4 h 4oz 465.9 [facility] 01/05/2014 - 100-10mg/5ML prn cough Tariq Frausto 01/19/2014 Syrup Aspirin [facility] 03/20/2013 - Tariq Frausto 04/18/2013 Chlorpheniramine prn [facility] 03/20/2013 - Maleate Tariq Frausto 01/15/2017 4mg Tablets Triamterene/Hydrochloro take 1 capsule 30caps Iggy Dave 04/06/2008 - thiazide by mouth every Tariq Giang,[facility] 03/26/2009 37.5-25 Caps morning Bactrim DS si bid x 3 6tabs Iggy Dave 12/06/2007 - 800-160 Tablets days Tariq Giang,[facility] 12/09/2007 Dyazide 1 po qd 30caps Iggy Dave - 37.5-25 Capsules Tariq Giang,[facility] 03/20/2013 Calcium 600 1 po bid 60tabs [...] CPT Code Status Date Vaccine Lot # [id number] Given 08/01/2018 Fluzone High Dose 70804 Given 01/21/2015 Pneumococcal Conjugate Vaccine 13 Valent For [id number] Intramuscular Use 08260 Given 04/18/2013 Pneumonia Vaccine [id number] Vital Signs Date Vital Result Comment 04/15/2019 [...] Mass Index) 30.3 kg/m2 Last Menstrual Period [id number] 05/27/2018 4:09pm Height 61.5 inches 5'1.50" Weight [...] H/L Range Note Lipid Panel - 11/22/2018 [facility] Creatine 182 U/L N 10-223 1 JFM [address]CK) [place] [address] [phone] Comp Metabolic 11/22/2018 [facility] Sodium 139 mmol/L N 135- [address] [place] [address] [phone] Potassium 4.2 mmol/L N 3.5-5.0 Chloride 104 [...] Egfr 71.4 >60 2 Lipid Profile 11/22/2018 [facility] Triglycerides 139 mg/dL 3 (Trig/Chol/HDL) [address] [place] [address] [phone] Cholesterol 155 mg/dL 4 HDL Cholesterol 67.0 mg/dL 5 LDL Cholesterol 60 mg/dL 6 Laboratory test 10/14/2018 [facility] Hemoglobin A1c 6.6 5-7 finding Lipid Panel - JFM 06/26/2018 [facility] Creatine 251 U/L High 10-[address] Kinase(CK) [place] [address] [phone] Comp Metabolic 06/26/2018 [facility] Sodium 139 mmol/L N 135- [address] [place] [address] [phone] Potassium 4.1 mmol/L N 3.5-5.0 Chloride 104 [...] Egfr 65.1 >60 7 Lipid Profile 06/26/2018 [facility] Triglycerides 78 mg/dL 8 (Trig/Chol/HDL) [address] [place] [address] [phone] Cholesterol 154 mg/dL 9 HDL Cholesterol 61.4 mg/dL 10 LDL Cholesterol 77 mg/dL 11 Lipid Panel 05/20/2018 [facility] Creatine 317 U/L High 10- 223 - JFM [address] Kinase(CK) [place] [address] [phone] CBC W/Auto 05/20/2018 [facility] White Blood 6.5 N 3.5-10.[address] Count 10^3/[place] [address] [phone] Red Blood Count 4.01 10^6/uL N 4.00-5.40 [...] Blood Cells % 0 Laboratory test 05/20/2018 [facility] Magnesium 2.0 mg/dL N 1.9-2.7 finding [address] [place] [address] [phone] Lipid Profile 05/20/2018 [facility] Triglycerides 81 mg/dL 12 (Trig/Chol/HDL) [address] [place] [address] [phone] Cholesterol 130 mg/dL 13 HDL Cholesterol 60.7 mg/dL 14 LDL Cholesterol 53 mg/dL 15 Comp Metabolic Panel 05/20/2018 [facility] Sodium 140 mmol/L N 135-145 [address] [place] [address] [phone] Potassium 4.3 mmol/L N 3.5-5.0 Chloride 104 [...] Egfr 66.6 >60 16 Laboratory test 05/20/2018 [facility] Hemoglobin A1c 6.6 % High 4.0-5.6 [address] (Glyco HGB) [place] [address] [phone] Urine 05/20/2018 [facility] Ur Microalbumin < 15.[address] (mg/L) mg/[place] [address] [phone] Urine Creatinine 118.18 mg/dL Urine Microalbumin/Creatinine TNP ug/mg <31 18 Laboratory test 12/24/2017 [facility] Hemoglobin A1c 6.3 5-7 finding Lipid Panel - JFM 05/23/2017 [facility] Creatine 120 U/L N 10- [address] Kinase(CK) [place] [address] [phone] CBC Auto Diff 05/23/2017 [facility] White Blood Count 6.2 N 3.5-10.[address] 10^3/[place] [address] [phone] Red Blood Count 4.35 10^6/uL N 4.0-5.4 [...] Cells % 0 N Laboratory test 05/23/2017 [facility] B-Type 31 pg/mL N [address] [place] [address] Peptide BNP [phone] Laboratory test 05/23/2017 [facility] Hemoglobin A1c 6.6 % High Less [address] (Glyco HGB) than 6.0 [place] [address] [phone] Comp Metabolic 05/23/2017 [facility] Sodium 136 N 133-[address] mmol/[place] [address] [phone] Potassium 4.5 mmol/L N 3.5-5.0 Chloride 101 [...] 71.8 N >60 21 Urine Microalbumin 05/23/2017 [facility] Urine Creatinine 58.45 mg/dL N Random [address] [place] [address] [phone] Ur Microalbumin (mg/L) < 15.0 mg/L N Urine Microalbumin/Creatinine TNP ug/mg N <31 22 Lipid Profile 05/23/2017 [facility] Triglycerides 57 mg/dL N 23 (Trig/Chol/HDL) [address] [place] [address] [phone] Cholesterol 134 mg/dL N 24 HDL Cholesterol 56.0 mg/dL N 25 LDL Cholesterol 67 mg/dL N 26 Laboratory test 12/01/2016 [facility] Hemoglobin A1c 6.0 5-7 finding Urine Microalbumin 06/02/2016 [facility] Urine Creatinine 73.93 mg/dL N [address] [place] [address] [phone] Ur Microalbumin (mg/L) < 15.0 mg/L N Urine Microalbumin/Creatinine TNP ug/mg N <31 28 Laboratory test 06/02/2016 [facility] Hemoglobin A1c 6.3 % High Less than [address] (Glyco HGB) 6.0 [place] [address] [phone] Comp Metabolic 06/02/2016 [facility] Sodium 138 N 133-[address] mmol/[place] [address] [phone] Potassium 4.0 mmol/L N 3.5-5.0 Chloride 104 [...] 74.7 N >60 30 Lipid Profile 06/02/2016 [facility] Triglycerides 81 mg/dL N 31 (Trig/Chol/HDL) [address] [place] [address] [phone] Cholesterol 141 mg/dL N 32 HDL Cholesterol 58.0 mg/dL N 33 LDL Cholesterol 67 mg/dL N 34 Laboratory test 02/14/2016 [facility] Hemoglobin A1c 5.9 5-7 finding Basic Metabolic 08/10/2015 [facility] Sodium 138 mmol/L N 133- [address] [place] [address] [phone] Potassium 4.5 mmol/L N 3.5-5.0 Chloride 102 mmol/L N 101-111 Co2 Carbon Dioxide 30 mmol/L N 22-32 Anion Gap 6 mmol/L N 2-11 Glucose 121 mg/dL High 70-100 Blood Urea Nitrogen 26 mg/dL High 6-24 Creatinine 0.93 mg/dL N 0.51-0.95 BUN/Creatinine Ratio 28.0 High 8-20 Calcium 9.2 mg/dL N 8.6-10.3 Egfr Non- 58.9 N >60 Egfr 75.8 N >60 35 Urine Microalbumin 07/21/2015 [facility] Ur Microalbumin < 5.0 mg/L N Random [address] [facility] (mg/L) [place] [address] [phone] Urine Creatinine 113.35 mg/dL N Urine Microalbumin/Creatinine TNP ug/mg N <31 36 Lipid Profile 07/20/2015 [facility] Triglycerides 113 mg/dL N 37, 38 (Trig/Chol/HDL) [address] [place] [address] [phone] Cholesterol 217 mg/dL N 39 HDL Cholesterol 56.9 mg/dL N 40 LDL Cholesterol 138 mg/dL N 41 Comp Metabolic Panel 07/20/2015 [facility] Sodium 138 mmol/L N 133-145 [address] [place] [address] [phone] Potassium 4.4 mmol/L N 3.5-5.0 Chloride 102 [...] 74.9 N >60 42 Laboratory test 07/20/2015 [facility] Hemoglobin A1c 6.4 % High Less [address] (Glyco HGB) than 6.0 [place] [address] [phone] Laboratory test 07/20/2015 [facility] Vitamin D Total 26.2 Low 30-[address] 25(Oh) ng/mL [place], [place] [phone] Laboratory test 01/21/2015 [facility] Hemoglobin A1c 6.1 5-7 finding Urine 07/23/2014 [facility] Ur Microalbumin 5.0 N <30 [address] (mg/L) mg/[place] [address] [phone] Urine Creatinine 91.31 mg/dL N Urine Microalbumin/Creatinine 5.4 N Less Than 31 Lipid Profile 04/15/2014 [facility] Triglycerides 115 mg/dL N 45, 46 (Trig/Chol/HDL) [address] [place] [address] [phone] Cholesterol 224 mg/dL N 47 HDL Cholesterol 59.9 mg/dL N 48 LDL Cholesterol 141 mg/dL N 49 Comp Metabolic Panel 04/15/2014 [facility] Sodium 138 mmol/L N 133-[address] [place] [address] [phone] Potassium 4.9 mmol/L N 3.7-5.6 Chloride 102 [...] 71.5 N >60 50 Laboratory test 04/15/2014 [facility] Hemoglobin A1c 6.5 % High Less than [address] 6.0 [place] [address] [phone] Laboratory test 07/22/2013 [facility] Hemoglobin A1c 6.1 % High Less than [address] 6.0 [place] [address] [phone] Glucose 103 mg/dL High 70-100 CBC Auto Diff 07/22/2013 [facility] White Blood 8.2 10^3/uL 4.8-10.[address] [place] [address] [phone] Red Blood Count 4.53 10^6/uL 4.0-5.4 Hemoglobin [...] Cells % 0.1 Urine Culture And 07/22/2013 [facility] Urine Culture (SEE NOTE ) [address] [place] [address] [phone] Urine Culture And 07/16/2013 [facility] Urine Culture (SEE NOTE ) [address] [place] [address] [phone] CBC Auto Diff 03/20/2013 [facility] White Blood 7.6 10^3/uL 4.8-[address] Count .8 [place] [address] [phone] Red Blood Count 4.45 10^6/uL 4.0-5.4 Hemoglobin [...] Blood Cells % 0.1 CBC Auto 12/11/2012 [facility] White Blood 12.8 10^3/uL High 4.8-10.[address] [place] [address] [phone] Red Blood Count 4.38 10^6/uL 4.0-5.4 Hemoglobin [...] Blood Cells % 0 Laboratory test 12/11/2012 [facility] Hemoglobin A1c 6.3 % High Less than [address] 6.0 [place] [address] [phone] Comp Metabolic 12/11/2012 [facility] Sodium 137 133-[address] mmol/[place] [address] [phone] Potassium 4.0 mmol/L 3.5-5.0 Chloride 102 mmol/L [...] Egfr 70.1 >60 56 Lipid Profile 12/11/2012 [facility] Triglycerides 83 mg/dL 40 -200 (Trig/Chol/HDL) [address] [place] [address] [phone] Cholesterol 232 mg/dL High Less than 200 HDL Cholesterol 72 mg/dL High 40-60 57 Cholesterol/HDL Ratio 3.2 Average 1-4.44 LDL Cholesterol 143.4 mg/dL High Less Than 100 58 Laboratory test 04/06/2009 [facility] TSH 2.26 MIU/ML 0.34- 5.60 finding [address] [place] [address] [phone] Thyroxine Free 0.76 NG/ML 0.61-1.24 59 Basic Metabolic Panel 04/06/2009 [facility] Sodium 140 mmol/L 135-145 [address] [place] [address] [phone] Potassium 4.2 mmol/L 3.5-5.0 Chloride 106 mmol/L 101-111 Co2 (Carbon Dioxide) 31.0 mmol/L 22-32 Anion Gap 3.0 mmol/L 2-11 60 Glucose 112 mg/dL High 70-100 61 BUN 19 mg/dL 6-24 Creatinine 0.90 mg/dL 0.50-1.40 One Over Creatinine 1.10 BUN/Creatinine Ratio 21.1 High 8-20 Calcium 9.1 mg/dL 8.1-9.9 62 Lipid Profile 04/06/2009 [facility] Triglyceride 132 mg/dL 40 -200 (Trig/Chol/HDL) [address] [place] [address] [phone] Cholesterol 211 mg/dL High Less Than 200 63 High Density Lipoprotein 54 mg/dL 40-60 64 Cholesterol/HDL Ratio 3.91 AVERAGE 1-4.44 Low Density Lipoprotein 131 mg/dL High Less Than 100 65 1 FASTING in 4 m Copy Result to: MIRTA FRAUSTO ([id number]) 2 Because ethnic data is not always [...] in selective patients <6.0%. Please refer to [employer] diabetic care guidelines for further information. 18 Unable to calculate due to low microalbumin 19 >100 to <200 pg/mL: likely compensated congestive heart failure (CHF) 200 to 400 pg/mL: likely moderate CHF >400 pg/mL: likely moderate to severe CHF 20 Therapeutic target for the treatment of diabetes Mellitus patients is <7% HBA1C, and in selective patients <6.0%.Please refer to [employer] Diabetic care guidelines for further [...] 160-189 mg/dL Very High: >189 mg/dL 27 [id number] 28 Unable to calculate due to low microalbumin 29 Therapeutic target for the treatment of diabetes Mellitus patients is <7% HBA1C, and in selective patients <6.0%.Please refer to [employer] Diabetic care guidelines for further [...] and in selective patients <6.0%.Please refer to [employer] Diabetic care guidelines for further [...] and in selective patients <6.0%.Please refer to [employer] Diabetic care guidelines for further information. 52 Therapeutic target for the treatment of diabetes Mellitus patients is <7% HBA1C, and in selective patients <6.0%.Please refer to [employer] Diabetic care guidelines for further information. 53 RUN DATE: 07/24/13 [facility] LAB LIVE PAGE 1 RUN TIME: [address] [place] [address] Specimen Inquiry Name: ERLINDA URBINA : [address]: Natasha Gastelum Acct: [id number] Unit: [id number] AGE: 72 Location: [facility] Re07/22/13 SEX: F Status: DEP ER SPEC: [id number] KRISTINA: 07/22/13-[address] [facility] [address]: Natasha Solano DO REQ: [id number] RECD: 07/22/136135 STATUS: KENYON RAMOS DR: Mirta Frausto MD _ SOURCE: URINE SPDESC: ORDERED: Urine Culture COMMENTS: Comment: IF CULTURE POSITIVE, CHECK SENSITIVITY TO KEFLEX QUERIES: Medent Number [id number] Procedure Result Verified Site Urine Culture Final 07/24/13- 1033 ML No Growth Day 2 (<1,000 CFU/mL) END OF REPORT * ML=Testing performed at Main Lab DEPARTMENT OF PATHOLOGY, [address] [place] [address] Jarrett Andrade M.D. Director [facility] Permit #[id number] RUN DATE: 07/20/13 [facility] LAB LIVE PAGE 1 RUN TIME: [address] [place] [address] Specimen Inquiry Name: ERLINDA URBINA : [address]: Natasha Gastelum Acct: [id number] Unit: [id number] AGE: 72 Location: [facility] Re07/16/13 SEX: F Status: DEP ER SPEC: [id number] KRISTINA: 07/16/13-[address] [facility] [address]: Natasha Solano DO REQ: [id number] RECD: 07/17/136 STATUS: KENYON RAMOS DR: KATYA Frausto MD _ SOURCE: URINE SPDESC: ORDERED: Urine Culture Procedure Result Verified Site Urine Culture Final 07/20/13- 0915 ML Organism 1 PROTEUS MIRABILIS/PENNERI [place] Count >100,000 (Many) CFU/ML 1. PROTEUS MIRABILIS/PENNERI [...] performed at Main Lab DEPARTMENT OF PATHOLOGY, [address] [place] [address] Jarrett Andrade M.D. Director [facility] Permit #[id number] 55 Therapeutic target for the treatment of diabetes Mellitus patients is <7% HBA1C, and in selective patients <6.0%.Please refer to [employer] Diabetic care guidelines for further [...] change was based on recommendations from the [employer]. 62 Please note change in [...] MG/DL Procedures Date Code Description Status 03/21/2019 749667611 Diabetic Retinal Eye Exam Completed 02/03/2019 16951566 Mammogram Completed 09/04/2018 12352 ECHO Stress Test Incl Perf Contiuous ekg Monitoring Completed W/Phys Superv 08/19/2018 59124 ECHO Transthoracic, Real-Time 2D With Doppler And Completed Color Flow 08/19/2018 66335 ECHO Transthoracic, Real-Time 2D With Doppler And Completed Color Flow 07/10/2018 33183 EKG Tracing & Interpretation Completed 06/04/2018 746940982 Bone Mineral Density Test Completed 04/24/2018 49488 Inject/Drain Joint/Bursa Major W/O US Completed 02/13/2018 66715 Short Arm Cast Application Completed 02/01/2018 26695 Open TX Of Distal Radial Intra-Articular FX Or Completed Epiphyseal Septn 02/01/2018 53847 Open TX Of Distal Radial Intra-Articular FX Or Completed Epiphyseal Septn 02/01/2018 02328 Open TX Of Distal Radial Intra-Articular FX Or Completed Epiphyseal Septn 01/31/2018 60350 Closed Treatment Distal Radial FX W/Manipulation Completed 12/25/2017 31195 EKG Tracing & Interpretation Completed 09/26/2017 327473572 Diabetic Retinal Eye Exam Completed 09/03/2017 79163 Admin & Interp Of Health Risk Assessment w/ Patient Completed 03/19/2017 78666 ECHO Transthoracic, Real-Time 2D With Doppler And Completed Color Flow 02/13/2017 92112 EKG Tracing & Interpretation Completed 09/15/2016 78980758 Mammogram Completed 06/20/2016 16256 EKG Tracing & Interpretation Completed 10/27/2015 99269 ECHO Transthoracic, Real-Time 2D With Doppler And Completed Color Flow 10/04/2015 33258 EKG Tracing & Interpretation Completed 09/14/2015 58496209 Mammogram Completed 09/14/2015 374588270 Bone Mineral Density Test Completed 12/15/2014 92275 ECHO Stress Test Incl Perf Contiuous ekg Monitoring Completed W/Phys Superv 09/08/2014 35749900 Mammogram Completed 08/04/2014 60348 EKG Tracing & Interpretation Completed 07/29/2014 73210 ECHO Transthoracic, Real-Time 2D With Doppler And Completed Color Flow 09/05/2013 14394052 Mammogram Completed 08/07/2013 00722 ECHO Transthoracic, Real-Time 2D With Doppler And Completed Color Flow 06/26/2013 85284452 Colonoscopy Completed 03/20/2013 73929 EKG Tracing & Interpretation Completed 05/28/2009 62048085 Mammogram Completed 10/13/2008 652874083 Bone Mineral Density Test Completed 05/27/2008 44205244 Mammogram Completed Encounters Type Date Location Provider Dx Diagnosis Office Visit 03/28/2019 [facility] Frausto, S61.411A Laceration without 5:00p Aracelis Potter foreign body of right hand, init encntr M25.512 Pain in left shoulder S00.33xA Contusion of nose, initial encounter Office Visit 10/14/2018 2:20p [facility] Z00.00 Encntr for Medicine - Tariq Frausto general adult [facility] medical exam w/o abnormal findings E11.9 Type 2 diabetes mellitus without complications R09.81 Nasal congestion Z12.31 Encntr screen mammogram for malignant neoplasm of breast Office Visit 09/09/2018 10:30a [facility] Debora Ferguson I10 Essential ( primary) William, N.PZi hypertension E78.00 Pure hypercholesterolemia, unspecified I35.0 Nonrheumatic aortic (valve) stenosis Office Visit 07/18/2018 3:40p [facility] Mirta R23.3 Spontaneous Medicine Tariq Frausto ecchymoses M79.641 Pain in right hand F43.0 Acute stress reaction Office Visit 07/10/2018 10:00a [facility] Bipin Gunn I10 Essential (primary) Tariq Hines hypertension E78.00 Pure hypercholesterolemia, unspecified I35.0 Nonrheumatic aortic (valve) stenosis Office Visit 06/07/2018 10:00a [facility] Kamran, Z01.419 Encntr for infusion nurse [facility] MD exam (general) (routine) w/o abn findings L03.116 Cellulitis of left lower limb L29.0 Pruritus ani Office Visit 05/27/2018 4:00p [facility] E11.9 Type 2 diabetes Aracelis Frausto M.D. 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 mellitus without complications I10 Essential (primary) hypertension E78.5 Hyperlipidemia, unspecified M25.541 Pain in joints of right hand M25.542 Pain in joints of left hand Office Visit 09/03/2017 3:20p [facility] Z00.00 Encntr for Aracelis Frausto M.D. general adult medical exam w/o abnormal findings E11.9 Type 2 diabetes mellitus without complications I10 Essential (primary) hypertension Z12.31 Encntr screen mammogram for malignant neoplasm of breast Office Visit 06/04/2017 2:40p [facility] E11.9 Type 2 diabetes Aracelis Frausto M.D. mellitus without complications I10 Essential (primary) hypertension E78.5 Hyperlipidemia, unspecified D22.39 Melanocytic nevi of other parts of face E55.9 Vitamin D deficiency, unspecified Office Visit 02/13/2017 3:20p [facility] Bipin Gunn I10 Essential (primary) Tariq Hines hypertension E78.5 Hyperlipidemia, unspecified E11.9 Type 2 diabetes mellitus without complications I35.0 Nonrheumatic aortic (valve) stenosis Office Visit 01/15/2017 11:40a [facility] Sebastien Mattson NP J06.9 Acute upper Medicine respiratory infection, unspecified Office Visit 12/01/2016 4:20p [facility] E11.9 Type 2 diabetes Aracelis Frausto M.D. mellitus without complications I10 Essential (primary) hypertension E78.5 Hyperlipidemia, unspecified E55.9 Vitamin D deficiency, unspecified Office Visit 08/28/2016 2:40p [facility] Z00.00 Encntr vianca Frausto M.D. general adult medical exam w/o abnormal findings E11.9 Type 2 diabetes mellitus without complications E78.5 Hyperlipidemia, unspecified I10 Essential (primary) hypertension Z12.31 Encntr screen mammogram for malignant neoplasm of breast Office Visit 06/20/2016 3:00p [facility] Bipin Gunn I10 Essential (primary) Tariq Hines hypertension I35.0 Nonrheumatic aortic (valve) stenosis Office Visit 02/14/2016 10:00a [facility] E11.9 Type 2 diabetes Aracelis Frausto M.D. mellitus without complications I10 Essential (primary) hypertension E78.5 Hyperlipidemia, unspecified Office Visit 10/29/2015 11:20a [facility] I10 Essential ( primary) Medicine Tariq Frausto hypertension L98.9 Disorder of the skin and subcutaneous tissue, unspecified Office Visit 10/04/2015 2:40p [facility] Bipin Gunn E11.9 Type 2 diabetes Cardiology Tariq Hines mellitus without complications I10 Essential (primary) hypertension I35.0 Nonrheumatic aortic (valve) stenosis E66.3 Overweight Office Visit 07/29/2015 4:00p [facility] V70.0 Examination Aracelis Frausto M.D. General Medical Routine AT [facility] 250.00 Diabetes Mellitus W/O Compl Type II Or Unspec Controlled V76.12 Screening Mammogram Malig John Other 733.90 Bone & Cartilage Disorder Unspec 401.1 Hypertension Benign Office Visit 02/04/2015 11:30a [facility] MENDEL Hernandez 424.1 Aortic Valve Disorder 401.1 Hypertension Benign 250.00 Diabetes Mellitus W/O Compl Type II Or Unspec Controlled Office Visit 01/21/2015 4:00p [facility] 250.00 Diabetes Mellitus Aracelis Frausto M.D. W/O Compl Type II Or Unspec Controlled 268.9 Vitamin D Deficiency Unspec 782.1 Rash & Other Nonspec Skin Eruption v03.82 Streptococcus Pneumoniae Vaccination Spec Other Office Visit 12/15/2014 11:30a [facility] Bipin Gunn 424.1 Aortic Valve Tariq Hines Disorder 794.31 Electrocardiogram (ECG) (EKG) Abnormal 401.1 Hypertension Benign Office Visit 08/04/2014 9:20a [facility] Bpiin Hines M.D. 782.3 Edema 424.1 Aortic Valve Disorder 794.31 Electrocardiogram (ECG) (EKG) Abnormal Office Visit 07/23/2014 2:40p [facility] 250.00 Diabetes Mellitus Aracelis Frausto M.D. W/O Compl Type II Or Unspec Controlled V76.10 Screening For Malignant Neoplasm Breast 424.1 Aortic Valve Disorder Office Visit 04/21/2014 3:00p [facility] V70.0 Examination Aracelis Frausto M.D. General Medical Routine AT Health Care [facility] 250.00 Diabetes Mellitus W/O Compl Type II Or Unspec Controlled 424.1 Aortic Valve Disorder 796.2 Blood Pressure Reading Elevated W/O Hypertension Office Visit 04/15/2014 10:00a [facility] 782.3 Edema Medicine Tariq Frausto Office Visit 04/02/2014 4:00p [facility] 493.00 Asthma Extrinsic Medicine Tariq Frausto Unspecified 599.0 UTI Urinary Tract Infection Site Not Spec Office Visit 02/20/2014 11:40a [facility] 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 Unspecified 796.2 Blood Pressure Reading Elevated W/O Hypertension Office Visit 01/19/2014 4:20p [facility] 465.9 URI Upper Aracelis Frausto M.D. Respiratory Infections Acute Unspec Sites Office Visit 01/05/2014 3:40p [facility] 465.9 URI Upper Medicine Tariq Frausto Respiratory Infections Acute Unspec Sites 840.9 Sprains & Strains Shoulder & Upper Arm Unspec Office Visit 07/29/2013 2:40p [facility] 790.21 Impaired Medicine Tariq Frausto Fasting Glucose 599.0 UTI Urinary Tract Infection Site Not Spec 785.2 Murmur Cardiac Undiagnosed 287.5 Thrombocytopenia Unspec Office Visit 04/18/2013 11:00a [facility] V70.0 Examination Medicine Tariq Frausto General Medical Routine AT Health Care Facility 272.4 Hyperlipidemia Other Unspec 790.21 Impaired Fasting Glucose 287.5 Thrombocytopenia Unspec 796.2 Blood Pressure Reading Elevated W/O Hypertension V76.10 Screening For Malignant Neoplasm Breast V03.82 Streptococcus Pneumoniae Vaccination Spec Other Office Visit 03/20/2013 10:40a [facility] V72.84 Examination Aracelis Frausto M.D. Preoperative Unspec 366.8 Cataract Other 401.1 Hypertension Benign 287.5 Thrombocytopenia Unspec 790.21 Impaired Fasting Glucose Office Visit 03/26/2009 9:20a DO Not Use [employer] Iggy Dave 401.1 Hypertension AT Juvencio Giang M.D.,FACP Benign 790.21 Impaired Fasting Glucose 272.4 Hyperlipidemia Other Unspec 840.4 Sprains & Strains Rotator Cuff (Capsule) 780.79 Malaise And Fatigue Other Office Visit 02/11/2008 11:30a DO Not Use [employer] Blanca Suarez PA 727.3 Bursitis Other AT [facility] 401.9 Hypertension Unspec 272.4 Hyperlipidemia Other Unspec 790.21 Impaired Fasting Glucose 300.02 Anxiety Disorder Generalized 530.81 Esophageal Reflux 477.9 Rhinitis Allergic Cause Unspec 719.41 Pain Joint Shoulder Region Plan of Treatment Future Appointment(s):05/02/2019 2:40 pm - Bipin Hines M.D. at [facility]04/15/2019 - Mirta Frausto M.D.S00.33xD Contusion of nose, subsequent encounterComments:Face is healing well.S60.222D Contusion of left hand, subsequent jitjarrvyO07.512 Pain in left shoulderNew Therapy:Physical TherapyFollow up:8 weeks for WC and 1 month for trnpfcgzG62.511D Laceration without foreign body of lip, subsequent encounterComments:Go to [facility] to have [facility] in the lip removed
[2019-04-15 15:44] VITALS: BP 179/81
--- NOTE | 2019-04-15 15:52 | UC ---
HPI Wound/Suture Re-check - HPI Summary HPI Summary: 78 y/o female presents to the urgent care requesting suture removal from her lips. Pt reports sutures were placed on 03/27/2019 here at the urgent care. She states the Dr told her they were absorbable suture. However, they haven't absorbed yet an they are bothering her when she eats. Wound has already healed well. No signs of infection. She went to see her PCP and she told her to come here. Pt denies fever, SOB, chest pain,abdominal pain, CHRISTIAN, N/V/D, visual changes or dizziness. . - History Of Current Complaint Chief Complaint: ABHINAVkin Stated Complaint: NEED SUTURE REMOVAL, DONE HERE Time Seen by Provider: 04/15/19 15:50 Hx Obtained From: Patient Hx Last Menstrual Period: post Onset/Duration: Sudden Onset, Lasting Weeks - 3 weeks ago, Still Present Severity: Mild Pain Intensity: 0 Pain Scale Used: 0-10 Numeric Surgery Date: 03/27/19 - Allergies/Home Medications Allergies/Adverse Reactions: Allergies Allergy/AdvReac Type Severity Reaction Status Date / Time acetaminophen Allergy Vomiting Verified 04/15/19 15:44 [From Darvocet-N] budesonide [From Symbicort] Allergy Unknown Verified 04/15/19 15:44 Reaction Details celecoxib [From Celebrex] Allergy Rash Verified 04/15/19 15:44 ciprofloxacin [From Cipro] Allergy See Comment Verified 04/15/19 15:44 codeine Allergy Vomiting Verified 04/15/19 15:44 formoterol [From Symbicort] Allergy See Comment Verified 04/15/19 15:44 latex Allergy Rash Verified 04/15/19 15:44 naproxen Allergy Rash Verified 04/15/19 15:44 nitrofurantoin Allergy Nausea And Verified 04/15/19 15:44 [From Macrodantin] Vomiting prochlorperazine Allergy See Comment Verified 04/15/19 15:44 propoxyphene Allergy Vomiting Verified 04/15/19 15:44 [From Darvocet-N] Sulfa (Sulfonamide Allergy Vomiting Verified 04/15/19 15:44 Antibiotics) tramadol Allergy Hallucinati Verified 04/15/19 15:44 ons bactrim Allergy Unknown Uncoded 04/15/19 15:44 Reaction Details ENVIRONMENTAL Allergy EYE Uncoded 04/15/19 15:44 IRRITATION, CONSTANT NASAL DRIP PMH/Surg Hx/FS Hx/Imm Hx Previously Healthy: Yes Endocrine History: Dyslipidemia Cardiovascular History: Hypertension - Surgical History Surgical History: Yes Surgery Procedure, Year, and Place: gallbladder removed 1973 - Family History Known Family History: Positive: Cardiac Disease - Social History Occupation: Employed Full-time Lives: With Family Alcohol Use: Rare Substance Use Type: None Smoking Status (MU): Never Smoked Tobacco - Immunization History Most Recent Influenza Vaccination: 2016 Most Recent Tetanus Shot: unknown Review of Systems All Other Systems Reviewed And Are Negative: Yes Constitutional: Positive: Negative Skin: Positive: Other - lower lip wound healing well w/ sutures in place Eyes: Positive: Negative ENT: Positive: Negative Respiratory: Positive: Negative Cardiovascular: Positive: Negative Gastrointestinal: Positive: Negative Genitourinary: Positive: Negative Motor: Positive: Negative Neurovascular: Positive: Negative Musculoskeletal: Positive: Negative Neurological: Positive: Negative Psychological: Positive: Negative Is Patient Immunocompromised?: No Physical Exam Triage Information Reviewed: Yes Appearance: Well-Appearing, No Pain Distress, Well-Nourished - obese female Vital Signs: Initial Vital Signs Temp 98.9 F 04/15/19 15:41 Pulse 62 04/15/19 15:41 Resp 18 04/15/19 15:41 BP 179/81 04/15/19 15:41 Pulse Ox 95 04/15/19 15:41 Vital Signs Reviewed: Yes Eye Exam: Normal ENT Exam: Normal Dental Exam: Normal Neck exam: Normal Respiratory Exam: Normal Cardiovascular Exam: Normal Abdominal Exam: Normal Bowel Sounds: Positive: Present Musculoskeletal Exam: Normal Neurological Exam: Normal Psychological Exam: Normal Skin Exam: Normal Skin: Positive: Other - positive lower lip wound healing well, non tender to palpation, 3 absorbable loose sutures in place. no tenderness on palaption, no drainage observed, no swelling. laceration completely closed. Course/Dx - Course Course Of Treatment: 78 y/o female presents to the urgent care requesting suture removal from her lips. Pt reports sutures were placed on 03/27/2019 here at the urgent care. She states the Dr told her they were absorbable suture. However, they haven't absorbed yet an they are bothering her when she eats. Wound has already healed well. No signs of infection. She went to see her PCP and she told her to come here. Pt denies fever, SOB, chest pain,abdominal pain, CHRISTIAN, N/V/D, visual changes or dizziness. Hx obtained. Pt w/ lower lip wound healing well, non tender to palpation, 3 absorbable loose sutures in place. 3 sutures removed w/o any difficulty. Pt tolerated well procedure. wound cleaned with sterile water. Pt advised if redness, pain or fever develops to return to the urgent care or f/ u with PCP for further treatment. Pt's BP elevated today, advised to decrease salt in diet and monitor BP, and f/u with PCP. Pt understood and agreed with plan of care - Differential Dx - Laceration/Wound Differential Diagnoses: Cellulitis, Healing Wound, Suture Removal - Diagnosis Provider Diagnosis: Encounter for removal of sutures, Uncontrolled hypertension Discharge - Sign-Out/Discharge Documenting (check all that apply): Patient Departure - d/C home All imaging exams completed and their final reports reviewed: No Studies - Discharge Plan Condition: Stable Disposition: HOME Patient Education Materials: Acute Wounds (ED) Referrals: Mirta Frausto MD [Primary Care Provider] - If Needed Additional Instructions: 1-Please apply Vitamin E around lips to keep them lubricated. 2- If you develop fever or redness around your lip please return to the Urgent care or your PCP for further management. 3-Your BP is elevated today. Please take your BP medications and decrease salt in your diet, monitor BP and if it continues to be elevated please f/u with your PCP for further management. If you develop chest pain, dizziness, visual disturbances, SOB, or severe CHRISTIAN please go immediately to the ER for further management - Billing Disposition and Condition Condition: STABLE Disposition: Home
== END 2019-04-15 16:20 | disposition home or self-care (01) ==
LOC: UCEAST 15:32
DX: S01.511D Laceration without foreign body of lip, subsequent encounter (principal); I10 Essential (primary) hypertension; E66.9 Obesity, unspecified; Z88.8 Allergy status to other drugs, medicaments and biological substances; Z88.1 Allergy status to other antibiotic agents; Z88.5 Allergy status to narcotic agent; Z91.040 Latex allergy status; Z88.2 Allergy status to sulfonamides; Z91.09 Other allergy status, other than to drugs and biological substances; X58.XXXD Exposure to other specified factors, subsequent encounter